=== PATIENT | male | born 1970 | race Caucasian/White ===

== ENCOUNTER 2017-01-05 22:49 | Emergency (ER) | payer SELFPAY ==
[~2017-01-05] VITALS: Ht 182.9 cm; Wt 85.5 kg
[~2017-01-05 22:49] MED LIST: DEXL30CA2 PO; HYDR1TAB14 PO; LORA-445 PO; OMEP-110 PO; OXYC-229 PO; OXYC-302 PO; OXYC15TA75; SUCR100P PO; TRAM50TA2 PO; toradol
[2017-01-06] MEDS ORDERED: DIPH,PERTUSS(ACELL),TET VAC/PF 0.5 ML IM-VACC ONE
[2017-01-06 02:42] VITALS: BP 106/79
== END 2017-01-06 03:13 | disposition home or self-care (01) ==
LOC: ED 01-06 03:08
DX: S06.9X1A Unspecified intracranial injury with loss of consciousness of 30 minutes or less, initial encounter (principal); S00.212A Abrasion of left eyelid and periocular area, initial encounter; Y09 Assault by unspecified means; Y93.9 Activity, unspecified; Y92.89 Other specified places as the place of occurrence of the external cause; Y99.9 Unspecified external cause status; K21.9 Gastro-esophageal reflux disease without esophagitis; F41.1 Generalized anxiety disorder; F10.20 Alcohol dependence, uncomplicated
CPT/HCPCS: 70450; 70486; 72125; 99284

== ENCOUNTER 2017-01-06 12:48 | Emergency (ER) | payer SELFPAY ==
[~2017-01-06] VITALS: Ht 182.9 cm; Wt 85.0 kg
[2017-01-06 13:00] VITALS: BP 117/84
== END 2017-01-06 13:46 | disposition left against medical advice (07) ==
LOC: ED 13:20
DX: R51 Headache (principal); Z53.21 Procedure and treatment not carried out due to patient leaving prior to being seen by health care provider

== ENCOUNTER 2017-01-09 21:37 | Emergency (ER) | payer SELFPAY ==
[~2017-01-09] VITALS: Ht 182.9 cm; Wt 87.1 kg
[2017-01-09 21:38] VITALS: BP 147/93
== END 2017-01-09 23:57 | disposition home or self-care (01) ==
LOC: ED 23:51
DX: R51 Headache (principal); M54.5 Low back pain; G89.29 Other chronic pain; F41.1 Generalized anxiety disorder; K21.9 Gastro-esophageal reflux disease without esophagitis; V89.2XXA Person injured in unspecified motor-vehicle accident, traffic, initial encounter; Y93.89 Activity, other specified; Y99.8 Other external cause status; Y92.488 Other paved roadways as the place of occurrence of the external cause
CPT/HCPCS: 70450; 72110

== ENCOUNTER 2017-04-03 05:41 | Emergency (ER) | payer MEDICAID, OTHER ==
[~2017-04-03] VITALS: Ht 182.9 cm; Wt 87.5 kg
[2017-04-03] MEDS ORDERED: OXYC-302 PO (06:12)
[2017-04-03] MEDS ORDERED: FAMOTIDINE 20 MG/2 ML IVP ONE (07:00)
[2017-04-03] MEDS ORDERED: SODIUM CHLORIDE 0.9% 1,000ML IVBOLUS ONE (07:00)
[2017-04-03] MEDS ORDERED: ONDANSETRON 2MG/ML, 2ML IVPush ONE (07:00)
[2017-04-03] MEDS ORDERED: SODIUM CHLORIDE FLUSH 10ML SYR IVF ONE (07:00)
[2017-04-03] MEDS ORDERED: MAALOX/HYOSCYAMINE/LIDOCAINE 45 ML BOTTLE PO ONE (07:00)
[2017-04-03 07:58] LABS: ASPARTATE AMINO TRANSFERASE 22 U/L (15-37); BLOOD UREA NITROGEN 11 mg/dL (7-18)
[2017-04-03] MEDS ORDERED: MAALOX/HYOSCYAMINE/LIDOCAINE 45 ML BOTTLE ONE (07:58)
[2017-04-03] MEDS ORDERED: FAMOTIDINE 20 MG/2 ML ONE (07:58)
[2017-04-03] MEDS ORDERED: ONDANSETRON 2MG/ML, 2ML ONE (07:58)
[2017-04-03] MEDS ORDERED: MORPHINE SULFATE 4 MG/ML, 1ML ONE (08:09)
[2017-04-03] MEDS ORDERED: morphine SULFATE 10 MG/ML, 1ML IVPush ONE (08:30)
[2017-04-03 08:45] VITALS: BP 120/89
== END 2017-04-03 08:56 | disposition home or self-care (01) ==
LOC: ED 06:15
DX: K29.00 Acute gastritis without bleeding (principal); K21.9 Gastro-esophageal reflux disease without esophagitis
CPT/HCPCS: 36415; 76700; 80053; 81003; 83690; 85025; 96374; 96375; 99285; J2405; J7030; S0028

== ENCOUNTER 2017-04-16 14:16 | Emergency (ER) | payer MEDICAID ==
[~2017-04-16] VITALS: Ht 182.9 cm; Wt 87.6 kg
[2017-04-16 14:26] VITALS: BP 110/82
[2017-04-16] MEDS ORDERED: METHOCARBAMOL 750 MG TABLET ONE (15:09)
[2017-04-16] MEDS ORDERED: KETOROLAC 30 MG/1 ML ONE (15:09)
[2017-04-16] MEDS ORDERED: KETOROLAC 30 MG/1 ML IM ONE (15:30)
[2017-04-16] MEDS ORDERED: METHOCARBAMOL 750 MG TABLET PO ONE (15:30)
== END 2017-04-16 15:32 | disposition home or self-care (01) ==
LOC: ED 15:20
DX: S39.012A Strain of muscle, fascia and tendon of lower back, initial encounter (principal); X58.XXXA Exposure to other specified factors, initial encounter; Y93.89 Activity, other specified; Y99.8 Other external cause status; Y92.89 Other specified places as the place of occurrence of the external cause
CPT/HCPCS: 96372; 99283; J1885

== ENCOUNTER 2017-06-10 14:22 | Emergency (ER) | payer MEDICAID, OTHER ==
[~2017-06-10] VITALS: Ht 182.9 cm; Wt 90.0 kg
[2017-06-10 14:58] VITALS: BP 139/91
== END 2017-06-10 15:29 | disposition home or self-care (01) ==
LOC: ED 15:16
DX: M77.01 Medial epicondylitis, right elbow (principal); K21.9 Gastro-esophageal reflux disease without esophagitis
CPT/HCPCS: 99283

== ENCOUNTER 2017-09-19 13:47 | Emergency (ER) | payer BC ==
[~2017-09-19] VITALS: Ht 182.9 cm; Wt 90.4 kg
[~2017-09-19 13:47] MED LIST changes: -OXYC-229 PO; +OXYC-307 PO
[2017-09-19] MEDS ORDERED: SODIUM CHLORIDE FLUSH 10ML SYR IVF ONE (15:30)
[2017-09-19] MEDS ORDERED: HYDROmorphone 1 MG/ML, 1ML IVPush PRN (15:30)
[2017-09-19] MEDS ORDERED: SODIUM CHLORIDE 0.9% 1,000ML IVBOLUS ONE (15:30)
[2017-09-19] MEDS ORDERED: ONDANSETRON 2MG/ML, 2ML IVPush ONE (15:30)
[2017-09-19 15:38] LABS: HEMATOCRIT 42.8 % (39.2-51.8); HEMOGLOBIN 14.5 g/dL (13.7-18.0); WHITE BLOOD COUNT 4.8 x10^3/uL (3.4-10)
[2017-09-19 15:51] LABS: BLOOD UREA NITROGEN 11 mg/dL (7-18)
[2017-09-19 15:56] LABS: IS PT STATUS REG ER OR PRE ER? YES
[2017-09-19] MEDS ORDERED: HYDROmorphone 1 MG/ML, 1ML ONE (15:59)
[2017-09-19] MEDS ORDERED: ONDANSETRON 2MG/ML, 2ML ONE (15:59)
[2017-09-19 16:59] VITALS: BP 125/87
== END 2017-09-19 17:08 | disposition home or self-care (01) ==
LOC: ED 17:02
DX: R51 Headache (principal); F41.9 Anxiety disorder, unspecified; K21.9 Gastro-esophageal reflux disease without esophagitis; F32.9 Major depressive disorder, single episode, unspecified
CPT/HCPCS: 36415; 70450; 80048; 82040; 84484; 85025; 96374; 96375; 99285; J1170; J2405; J7030

== ENCOUNTER 2017-12-07 14:12 | Emergency (ER) | payer SELFPAY ==
[~2017-12-07] VITALS: Ht 182.9 cm; Wt 89.0 kg
[2017-12-07] MEDS ORDERED: ASPIRIN 81 MG TABLET CHEW ONE (14:26)
[2017-12-07] MEDS ORDERED: SODIUM CHLORIDE FLUSH 10ML SYR IVF ONE (14:30)
[2017-12-07] MEDS ORDERED: ASPIRIN 81 MG TABLET CHEW PO ONE (14:30)
[2017-12-07 15:07] LABS: ALANINE AMINOTRANSFERASE 31 U/L (12-78); ALBUMIN 3.7 g/dL (3.4-5.0); ANION GAP 6 mmol/L (5-15); CALCIUM 8.1 mg/dL (8.5-10.1); CHLORIDE 108 mmol/L (98-107); CREATININE 0.82 mg/dL (0.7-1.3)
[2017-12-07 15:11] LABS: ALKALINE PHOSPHATASE 174 U/L (45-117); BILIRUBIN,TOTAL 0.5 mg/dL (0.2-1.0); TOTAL PROTEIN 7.1 g/dL (6.4-8.2); TROPONIN I < 0.015 ng/mL (0.000-0.045)
[2017-12-07 15:45] LABS: BASOPHILS # (AUTO) 0.02 x10^3/uL (0-0.1); BASOPHILS % (AUTO) 0 % (0-1); EOSINOPHILS # (AUTO) 0.19 x10^3/uL (0-0.4); EOSINOPHILS % (AUTO) 3 % (1-7); LYMPHOCYTES # (AUTO) 2.16 x10^3/uL (1-3.4); LYMPHOCYTES % (AUTO) 37 % (22-44); MD NO; MEAN CORPUSCULAR HEMOGLOBIN 31.6 pg (27.5-34.5); MEAN CORPUSCULAR HGB CONC 34.4 g/dL (33.2-36.2); MEAN CORPUSCULAR VOLUME 91.8 fL (81-97); MONOCYTES # (AUTO) 0.39 x10^3/uL (0.2-0.8); MONOCYTES % (AUTO) 7 % (2-9); NEUTROPHILS # (AUTO) 3.06 x10^3/uL (1.8-6.8); NEUTROPHILS % (AUTO) 53 % (42-75); PLATELET COUNT 196 x10^3/uL (130-400); RED BLOOD COUNT 4.47 x10^6/uL (4.38-5.82); RED CELL DISTRIBUTION WIDTH 13.3 % (9.4-14.8)
[2017-12-07] MEDS ORDERED: MAALOX/HYOSCYAMINE/LIDOCAINE 45 ML BTL PO ONE (19:30)
[2017-12-07] MEDS ORDERED: MAALOX/HYOSCYAMINE/LIDOCAINE 45 ML BTL ONE (19:31)
[2017-12-07 20:54] VITALS: BP 123/89
== END 2017-12-07 20:56 | disposition home or self-care (01) ==
LOC: ED 20:45
DX: R07.2 Precordial pain (principal); F17.200 Nicotine dependence, unspecified, uncomplicated; F32.9 Major depressive disorder, single episode, unspecified; F41.9 Anxiety disorder, unspecified; K21.9 Gastro-esophageal reflux disease without esophagitis; G89.29 Other chronic pain; R51 Headache
CPT/HCPCS: 36415; 71046; 80053; 83690; 84484; 85025; 93005; 99285

== ENCOUNTER 2018-03-02 12:25 | Emergency (ER) | payer SELFPAY ==
[~2018-03-02] VITALS: Ht 182.9 cm; Wt 84.2 kg
[2018-03-02 12:26] VITALS: BP 129/89
[2018-03-02] MEDS ORDERED: OXYcodone/APAP 5/325MG TABLET ONE (12:57)
[2018-03-02] MEDS ORDERED: OXYcodone/APAP 5/325MG TABLET PO ONE (13:00)
[2018-03-02] MEDS ORDERED: OXYC-307 PO (13:04)
== END 2018-03-02 14:28 | disposition home or self-care (01) ==
LOC: ED 13:22
DX: S00.12XA Contusion of left eyelid and periocular area, initial encounter (principal); X58.XXXA Exposure to other specified factors, initial encounter; Y93.89 Activity, other specified; Y99.8 Other external cause status; Y92.89 Other specified places as the place of occurrence of the external cause
CPT/HCPCS: 70486; 72125; 99284

== ENCOUNTER 2018-05-08 19:43 | Emergency (ER) | payer MEDICAID ==
[~2018-05-08] VITALS: Ht 182.9 cm; Wt 79.0 kg
[2018-05-08] MEDS ORDERED: FAMOTIDINE 20 MG/2 ML IVP ONE (20:30)
[2018-05-08] MEDS ORDERED: ONDANSETRON 2MG/ML, 2ML IVPush ONE (20:30)
[2018-05-08] MEDS ORDERED: MAALOX/HYOSCYAMINE/LIDOCAINE 45 ML BTL PO ONE (20:30)
[2018-05-08 20:37] LABS: BASOPHILS # (AUTO) 0.03 x10^3/uL (0-0.1); BASOPHILS % (AUTO) 1 % (0-1); EOSINOPHILS # (AUTO) 0.03 x10^3/uL (0-0.4); EOSINOPHILS % (AUTO) 1 % (1-7); LYMPHOCYTES # (AUTO) 2.19 x10^3/uL (1-3.4); LYMPHOCYTES % (AUTO) 34 % (22-44); MD NO; MEAN CORPUSCULAR HEMOGLOBIN 33.2 pg (27.5-34.5); MEAN CORPUSCULAR HGB CONC 34.1 g/dL (33.2-36.2); MEAN CORPUSCULAR VOLUME 97.2 fL (81-97); MEAN PLATELET VOLUME 9.3 fL (7.4-10.4); MONOCYTES # (AUTO) 0.42 x10^3/uL (0.2-0.8); MONOCYTES % (AUTO) 7 % (2-9); NEUTROPHILS # (AUTO) 3.79 x10^3/uL (1.8-6.8); NEUTROPHILS % (AUTO) 59 % (42-75); PLATELET COUNT 225 x10^3/uL (130-400); RED BLOOD COUNT 5.24 x10^6/uL (4.38-5.82); RED CELL DISTRIBUTION WIDTH 14.4 % (9.4-14.8)
[2018-05-08 20:39] LABS: ALANINE AMINOTRANSFERASE 53 U/L (12-78); ALBUMIN 4.6 g/dL (3.4-5.0); ANION GAP 7 mmol/L (5-15); CALCIUM 8.8 mg/dL (8.5-10.1); CHLORIDE 108 mmol/L (98-107); CREATININE 1.25 mg/dL (0.7-1.3)
[2018-05-08 20:41] LABS: ALKALINE PHOSPHATASE 155 U/L (45-117); BILIRUBIN,TOTAL 0.6 mg/dL (0.2-1.0); TOTAL PROTEIN 8.6 g/dL (6.4-8.2)
[2018-05-08] MEDS ORDERED: ONDANSETRON 2MG/ML, 2ML ONE (21:11)
[2018-05-08] MEDS ORDERED: FAMOTIDINE 20 MG/2 ML ONE (21:12)
[2018-05-08] MEDS ORDERED: MAALOX/HYOSCYAMINE/LIDOCAINE 45 ML BTL ONE (21:12)
[2018-05-08] MEDS ORDERED: SODIUM CHLORIDE 0.9% 1,000ML IVBOLUS ONE (21:30)
[2018-05-08] MEDS ORDERED: MORPHINE SULFATE 4 MG/ML, 1ML ONE ×2 (21:32→22:41)
[2018-05-08] MEDS: MORPHINE SULFATE 4 MG/ML, 1ML IVPush PRN ×2 (21:37→22:43)
[2018-05-08] MEDS ORDERED: HYDROmorphone 2 MG/ML, 1ML ONE (23:52)
[2018-05-08 23:56] VITALS: BP 128/75
== END 2018-05-09 00:21 | disposition home or self-care (01) ==
LOC: ED 23:39
DX: K86.0 Alcohol-induced chronic pancreatitis (principal); K21.9 Gastro-esophageal reflux disease without esophagitis
CPT/HCPCS: 36415; 76700; 80053; 83690; 85025; 96361; 96374; 96375; 96376; 99285; J2405; J7030; S0028

== ENCOUNTER 2018-06-06 19:39 | Emergency (ER) | payer MEDICAID ==
[~2018-06-06] VITALS: Ht 182.9 cm; Wt 81.0 kg
[2018-06-06] MEDS ORDERED: SODIUM CHLORIDE FLUSH 10ML SYR IVF ONE (20:30)
[2018-06-06 20:55] LABS: BASOPHILS # (AUTO) 0.03 x10^3/uL (0-0.1); BASOPHILS % (AUTO) 1 % (0-1); EOSINOPHILS # (AUTO) 0.12 x10^3/uL (0-0.4); EOSINOPHILS % (AUTO) 2 % (1-7); LYMPHOCYTES # (AUTO) 1.83 x10^3/uL (1-3.4); LYMPHOCYTES % (AUTO) 33 % (22-44); MD NO; MEAN CORPUSCULAR HEMOGLOBIN 34.2 pg (27.5-34.5); MEAN CORPUSCULAR HGB CONC 34.3 g/dL (33.2-36.2); MEAN CORPUSCULAR VOLUME 99.7 fL (81-97); MEAN PLATELET VOLUME 8.6 fL (7.4-10.4); MONOCYTES # (AUTO) 0.29 x10^3/uL (0.2-0.8); MONOCYTES % (AUTO) 5 % (2-9); NEUTROPHILS # (AUTO) 3.32 x10^3/uL (1.8-6.8); NEUTROPHILS % (AUTO) 60 % (42-75); PLATELET COUNT 227 x10^3/uL (130-400); RED BLOOD COUNT 4.32 x10^6/uL (4.38-5.82); RED CELL DISTRIBUTION WIDTH 14.3 % (9.4-14.8)
[2018-06-06 22:03] VITALS: BP 117/78
[2018-06-06] MEDS ORDERED: OMNIPAQUE 350 MG/ML, 100ML BOTTLE ONE (22:11)
== END 2018-06-06 22:05 | disposition home or self-care (01) ==
LOC: ED 22:00
DX: S80.11XA Contusion of right lower leg, initial encounter (principal); R10.84 Generalized abdominal pain; K21.9 Gastro-esophageal reflux disease without esophagitis; F32.9 Major depressive disorder, single episode, unspecified; F41.1 Generalized anxiety disorder; V29.49XA Motorcycle driver injured in collision with other motor vehicles in traffic accident, initial encounter; Y93.89 Activity, other specified; Y99.8 Other external cause status; Y92.89 Other specified places as the place of occurrence of the external cause
CPT/HCPCS: 36415; 70450; 72125; 73590; 74177; 85025; 99285; Q9967

== ENCOUNTER 2018-07-04 00:26 | Inpatient (IN) | payer MEDICAID, OTHER ==
[~2018-07-04] VITALS: Ht 182.9 cm; Wt 84.1 kg
[2018-07-04] MEDS ORDERED: MORPHINE SULFATE 4 MG/ML, 1ML IVPush PRN (01:00)
[2018-07-04] MEDS ORDERED: FAMOTIDINE 20 MG/2 ML IVP ONE (01:00)
[2018-07-04] MEDS ORDERED: SODIUM CHLORIDE FLUSH 10ML SYR IVF ONE (01:00)
[2018-07-04] MEDS ORDERED: SODIUM CHLORIDE 0.9% 1,000ML IVBOLUS ONE (01:00)
[2018-07-04] MEDS ORDERED: MORPHINE SULFATE 4 MG/ML, 1ML ONE (01:05)
[2018-07-04] MEDS ORDERED: FAMOTIDINE 20 MG/2 ML ONE (01:05)
[2018-07-04 01:09] LABS: BASOPHILS # (AUTO) 0.01 x10^3/uL (0-0.1); BASOPHILS % (AUTO) 0 % (0-1); EOSINOPHILS # (AUTO) 0.03 x10^3/uL (0-0.4); EOSINOPHILS % (AUTO) 0 % (1-7); LYMPHOCYTES # (AUTO) 2.09 x10^3/uL (1-3.4); LYMPHOCYTES % (AUTO) 30 % (22-44); MD NO; MEAN CORPUSCULAR HEMOGLOBIN 34.6 pg (27.5-34.5); MEAN CORPUSCULAR HGB CONC 34.8 g/dL (33.2-36.2); MEAN CORPUSCULAR VOLUME 99.3 fL (81-97); MEAN PLATELET VOLUME 8.9 fL (7.4-10.4); MONOCYTES # (AUTO) 0.22 x10^3/uL (0.2-0.8); MONOCYTES % (AUTO) 3 % (2-9); NEUTROPHILS # (AUTO) 4.59 x10^3/uL (1.8-6.8); NEUTROPHILS % (AUTO) 66 % (42-75); PLATELET COUNT 185 x10^3/uL (130-400); RED BLOOD COUNT 4.53 x10^6/uL (4.38-5.82); RED CELL DISTRIBUTION WIDTH 14.1 % (9.4-14.8)
[2018-07-04 01:12] LABS: INTERNATIONAL NORMALIZED RATIO 1.05 (0.93-1.1); PROTHROMBIN TIME 10.8 Seconds (9.6-11.5)
[2018-07-04 01:15] LABS: ALANINE AMINOTRANSFERASE 37 U/L (12-78); ALBUMIN 3.9 g/dL (3.4-5.0); ANION GAP 11 mmol/L (5-15); CALCIUM 7.7 mg/dL (8.5-10.1); CHLORIDE 108 mmol/L (98-107); CREATININE 0.87 mg/dL (0.7-1.3)
[2018-07-04 01:17] LABS: ALKALINE PHOSPHATASE 135 U/L (45-117); BILIRUBIN,TOTAL 0.5 mg/dL (0.2-1.0); TOTAL PROTEIN 7.5 g/dL (6.4-8.2)
[2018-07-04] MEDS ORDERED: MAGNESIUM SULFATE 1 GM, THIAMINE 100 MG, FOLIC ACID 1 MG, MVI ADULT 10 ML in SODIUM CHL... IV ONE (02:30)
[2018-07-04 02:57] VITALS: BP 127/87
[2018-07-04] MEDS ORDERED: LORazepam 1MG TABLET PO PRN ×3 (03:00)
[2018-07-04] MEDS ORDERED: ONDANSETRON 2MG/ML, 2ML IVPush PRN (03:00)
[2018-07-04] MEDS ORDERED: hydrALAzine 20 MG/ML, 1ML IVPush PRN (03:00)
[2018-07-04] MEDS ORDERED: LORazepam 2 MG/ML, 1ML IV PRN ×5 (03:00)
[2018-07-04] MEDS ORDERED: DOCUSATE 100 MG CAPSULE PO PRN (03:00)
[2018-07-04] MEDS ORDERED: BISACODYL 10 MG SUPP PR PRN (03:00)
[2018-07-04] MEDS ORDERED: LABETALOL 5MG/ML, 20ML IVPush PRN (03:00)
[2018-07-04] MEDS ORDERED: GABAPENTIN 300 MG CAPSULE PO PRN (03:00)
[2018-07-04] MEDS ORDERED: PROMETHAZINE 25 MG/ML, 1ML IM PRN (03:00)
[2018-07-04] MEDS ORDERED: ONDANSETRON ODT 4 MG PO PRN (03:00)
[2018-07-04] MEDS ORDERED: POLYETHYLENE GLYCOL 17 GM PACKET PO PRN (03:00)
[2018-07-04] MEDS ORDERED: BACLOFEN 10 MG TABLET PO PRN (03:00)
[2018-07-04] MEDS ORDERED: LORazepam 0.5MG TABLET PO PRN (03:00)
[2018-07-04 03:32] LABS: HEMOGLOBIN A1C 5.3 % (4.2-6.3)
[2018-07-04 03:41] LABS: FREE T4 (FREE THYROXINE) 0.87 ng/dL (0.76-1.46); THYROID STIMULATING HORMONE 1.27 mIU/L (0.358-3.740)
[2018-07-04 05:01] LABS: CULTURE INDICATED? NO; MICROSCOPIC NOT IND
[2018-07-04] MEDS: PANTOPRAZOLE 40 MG IV IVPush SCH ×2 (05:24→17:48)
[2018-07-04] MEDS: LORazepam 1MG TABLET PO PRN ×3 (05:32→14:24)
[2018-07-04 07:50] VITALS: BP 126/91
[2018-07-04 12:32] VITALS: BP 118/81
[2018-07-04] MEDS ORDERED: ACETAMINOPHEN 325 MG TABLET PO PRN (16:30)
[2018-07-04] MEDS: LORazepam 2 MG/ML, 1ML IVPush PRN ×2 (17:06→20:13)
[2018-07-04] MEDS: SODIUM CHLORIDE 0.9% 1,000 ML IV SCH (17:06)
[2018-07-04 18:55] VITALS: BP 123/81
[2018-07-04] MEDS: CHOLECALCIFEROL 400 UNITS TABLET PO SCH (20:13)
[2018-07-04] MEDS: THIAMINE 100MG TABLET PO SCH (20:13)
[2018-07-04] MEDS: GABAPENTIN 100 MG CAPSULE PO SCH (20:13)
[2018-07-05] MEDS: LORazepam 2 MG/ML, 1ML IVPush PRN ×4 (00:45→20:17)
[2018-07-05 02:04] VITALS: BP 106/71
[2018-07-05] MEDS: SODIUM CHLORIDE 0.9% 1,000 ML IV SCH ×2 (02:30→14:45)
[2018-07-05] MEDS: POTASSIUM CHLORIDE 20 MEQ, MAGNESIUM SULFATE 2 GM, THIAMINE 100 MG, MVI ADULT 10 ML, FO... IV SCH (02:39)
[2018-07-05 05:58] LABS: BASOPHILS # (AUTO) 0.03 x10^3/uL (0-0.1); BASOPHILS % (AUTO) 1 % (0-1); EOSINOPHILS # (AUTO) 0.12 x10^3/uL (0-0.4); EOSINOPHILS % (AUTO) 2 % (1-7); LYMPHOCYTES % (AUTO) 18 % (22-44); MD NO; MEAN CORPUSCULAR HGB CONC 34.3 g/dL (33.2-36.2); MEAN PLATELET VOLUME 9.3 fL (7.4-10.4); MONOCYTES # (AUTO) 0.36 x10^3/uL (0.2-0.8); MONOCYTES % (AUTO) 6 % (2-9); NEUTROPHILS # (AUTO) 4.49 x10^3/uL (1.8-6.8); NEUTROPHILS % (AUTO) 74 % (42-75); PLATELET COUNT 127 x10^3/uL (130-400); RED BLOOD COUNT 3.83 x10^6/uL (4.38-5.82); RED CELL DISTRIBUTION WIDTH 13.6 % (9.4-14.8)
[2018-07-05 06:02] LABS: ALBUMIN 3.1 g/dL (3.4-5.0); ANION GAP 7 mmol/L (5-15); CALCIUM 8.1 mg/dL (8.5-10.1); CHLORIDE 103 mmol/L (98-107)
[2018-07-05 06:08] LABS: ALANINE AMINOTRANSFERASE 41 U/L (12-78); ALKALINE PHOSPHATASE 129 U/L (45-117); BILIRUBIN,TOTAL 1.7 mg/dL (0.2-1.0); CHOL/HDL RATIO 1.4; CHOLESTEROL, TOTAL 142 mg/dL (140-239); HDL CHOL % 69 % (26-37); HDL CHOLESTEROL (DIRECT) 98 mg/dL (40-60); LDL CHOLESTEROL,CALCULATED 35 mg/dL (54-169); LDL/HDL RATIO 0.4 (0.5-3.0); TRIGLYCERIDES 46 mg/dL (50-200); VLDL CHOLESTEROL 9 mg/dL (0-25)
[2018-07-05] MEDS: PANTOPRAZOLE 40 MG IV IVPush SCH ×2 (06:35→17:48)
[2018-07-05 07:27] VITALS: BP 135/86
[2018-07-05] MEDS: GABAPENTIN 100 MG CAPSULE PO SCH ×3 (08:33→20:18)
[2018-07-05] MEDS: THIAMINE 100MG TABLET PO SCH ×2 (08:34→20:17)
[2018-07-05] MEDS: CHOLECALCIFEROL 400 UNITS TABLET PO SCH ×2 (08:34→20:17)
[2018-07-05 14:07] VITALS: BP 117/79
[2018-07-05 20:37] VITALS: BP 121/81
[2018-07-06] MEDS: SODIUM CHLORIDE 0.9% 1,000 ML IV SCH ×2 (01:22→10:00)
[2018-07-06] MEDS: LORazepam 2 MG/ML, 1ML IVPush PRN ×3 (01:23→12:25)
[2018-07-06 01:25] VITALS: BP 137/92
[2018-07-06] MEDS: PANTOPRAZOLE 40 MG IV IVPush SCH (06:19)
[2018-07-06] MEDS: POTASSIUM CHLORIDE 20 MEQ, MAGNESIUM SULFATE 2 GM, THIAMINE 100 MG, MVI ADULT 10 ML, FO... IV SCH (06:24)
[2018-07-06 07:45] VITALS: BP 119/84
[2018-07-06] MEDS: CHOLECALCIFEROL 400 UNITS TABLET PO SCH (08:24)
[2018-07-06] MEDS: GABAPENTIN 100 MG CAPSULE PO SCH ×2 (08:24→16:00)
[2018-07-06] MEDS: THIAMINE 100MG TABLET PO SCH (08:24)
[2018-07-06 11:01] LABS: ALANINE AMINOTRANSFERASE 63 U/L (12-78); ALBUMIN 3.1 g/dL (3.4-5.0); ANION GAP 8 mmol/L (5-15); CHLORIDE 102 mmol/L (98-107); CREATININE 0.85 mg/dL (0.7-1.3); MEAN CORPUSCULAR HEMOGLOBIN 34.7 pg (27.5-34.5); MEAN CORPUSCULAR HGB CONC 34.5 g/dL (33.2-36.2); MEAN CORPUSCULAR VOLUME 100.6 fL (81-97); MEAN PLATELET VOLUME 9.5 fL (7.4-10.4); PLATELET COUNT 109 x10^3/uL (130-400); RED BLOOD COUNT 3.69 x10^6/uL (4.38-5.82); RED CELL DISTRIBUTION WIDTH 13.5 % (9.4-14.8)
[2018-07-06 11:04] LABS: ALKALINE PHOSPHATASE 141 U/L (45-117); BILIRUBIN,TOTAL 1.3 mg/dL (0.2-1.0); TOTAL PROTEIN 6.1 g/dL (6.4-8.2)
[2018-07-06 11:29] LABS: BASOPHILS # (AUTO) 0.01 x10^3/uL (0-0.1); BASOPHILS % (AUTO) 0 % (0-1); EOSINOPHILS # (AUTO) 0.22 x10^3/uL (0-0.4); EOSINOPHILS % (AUTO) 6 % (1-7); LYMPHOCYTES # (AUTO) 0.78 x10^3/uL (1-3.4); LYMPHOCYTES % (AUTO) 22 % (22-44); MD SCAN; MONOCYTES # (AUTO) 0.22 x10^3/uL (0.2-0.8); MONOCYTES % (AUTO) 6 % (2-9); NEUTROPHILS % (AUTO) 65 % (42-75)
[2018-07-06 13:50] VITALS: BP 126/87
[2018-07-06] MEDS ORDERED: PANT40TA3 PO (14:04)
== END 2018-07-06 17:20 | disposition home or self-care (01) | DRG 392 ==
LOC: ED 01:20 → EDIP 02:11 → 4NOR 03:00
PROVIDERS: ADMIT Internal Medicine; ATTEND Internal Medicine
DX: K29.00 Acute gastritis without bleeding (principal); K86.1 Other chronic pancreatitis; K29.20 Alcoholic gastritis without bleeding; D75.89 Other specified diseases of blood and blood-forming organs; E83.51 Hypocalcemia; K21.9 Gastro-esophageal reflux disease without esophagitis; Z87.891 Personal history of nicotine dependence; F10.129 Alcohol abuse with intoxication, unspecified; G89.29 Other chronic pain
CPT/HCPCS: 36415; 99285; J7042; S0028; 80053; 80061; 80307; 81003; 82306; 82607; 83036; 83690; 83735; 84100; 84439; 84443; 85025; 85610; 96374; 96375; G0378; J3411; J3475; J3480; Q0162; C9113; J2060; J7030

== ENCOUNTER 2018-07-13 18:24 | Inpatient (IN) | payer MEDICAID, OTHER ==
[~2018-07-13] VITALS: Ht 182.9 cm; Wt 79.4 kg
[~2018-07-13 18:24] MED LIST changes: +PANT40TA3 PO
[2018-07-13] MEDS ORDERED: SODIUM CHLORIDE 0.9% 1,000ML IVBOLUS ONE (19:00)
[2018-07-13] MEDS ORDERED: PLEASE ENTER HEIGHT AND WEIGHT MC SCH (19:00)
[2018-07-13] MEDS ORDERED: FAMOTIDINE 20 MG/2 ML IVP ONE (19:00)
[2018-07-13] MEDS ORDERED: SODIUM CHLORIDE FLUSH 10ML SYR IVF ONE (19:00)
[2018-07-13] MEDS ORDERED: ONDANSETRON ODT 4 MG PO ONE ×2 (19:00→19:30)
[2018-07-13] MEDS ORDERED: ONDANSETRON ODT 4 MG ONE (19:08)
[2018-07-13] MEDS ORDERED: FAMOTIDINE 20 MG/2 ML ONE (19:08)
[2018-07-13] MEDS ORDERED: MORPHINE SULFATE 4 MG/ML, 1ML ONE ×2 (19:24→19:53)
[2018-07-13 19:30] LABS: BASOPHILS # (AUTO) 0.02 x10^3/uL (0-0.1); BASOPHILS % (AUTO) 1 % (0-1); EOSINOPHILS # (AUTO) 0.04 x10^3/uL (0-0.4); EOSINOPHILS % (AUTO) 1 % (1-7); LYMPHOCYTES # (AUTO) 2.13 x10^3/uL (1-3.4); LYMPHOCYTES % (AUTO) 46 % (22-44); MD NO; MEAN CORPUSCULAR HEMOGLOBIN 34.6 pg (27.5-34.5); MEAN CORPUSCULAR HGB CONC 34.8 g/dL (33.2-36.2); MEAN CORPUSCULAR VOLUME 99.5 fL (81-97); MEAN PLATELET VOLUME 8.6 fL (7.4-10.4); MONOCYTES # (AUTO) 0.42 x10^3/uL (0.2-0.8); MONOCYTES % (AUTO) 9 % (2-9); NEUTROPHILS # (AUTO) 2.06 x10^3/uL (1.8-6.8); NEUTROPHILS % (AUTO) 44 % (42-75); PLATELET COUNT 222 x10^3/uL (130-400); RED BLOOD COUNT 4.43 x10^6/uL (4.38-5.82); RED CELL DISTRIBUTION WIDTH 14.1 % (9.4-14.8)
[2018-07-13] MEDS: MORPHINE SULFATE 4 MG/ML, 1ML IVPush PRN ×2 (19:30→19:57)
[2018-07-13 19:47] LABS: ALANINE AMINOTRANSFERASE 31 U/L (12-78); ALBUMIN 3.2 g/dL (3.4-5.0); ANION GAP 9 mmol/L (5-15); CALCIUM 7.4 mg/dL (8.5-10.1); CHLORIDE 114 mmol/L (98-107); CREATININE 0.78 mg/dL (0.7-1.3)
[2018-07-13 19:49] LABS: ALKALINE PHOSPHATASE 110 U/L (45-117); BILIRUBIN,TOTAL 0.3 mg/dL (0.2-1.0); TOTAL PROTEIN 6.4 g/dL (6.4-8.2)
[2018-07-13 20:35] LABS: CULTURE INDICATED? NO; MICROSCOPIC NOT IND
[2018-07-13] MEDS ORDERED: SODIUM CHLORIDE 0.9% 1,000 ML IV ONE (20:56)
[2018-07-13] MEDS ORDERED: SODIUM CHLORIDE FLUSH 10ML SYR IVF PRN (21:00)
[2018-07-13] MEDS ORDERED: LACTULOSE 20 GM/30 ML UDC PO ONE (21:00)
[2018-07-13] MEDS ORDERED: BISACODYL 10 MG SUPP PR PRN (21:30)
[2018-07-13] MEDS ORDERED: ONDANSETRON ODT 4 MG PO PRN (21:30)
[2018-07-13] MEDS ORDERED: POLYETHYLENE GLYCOL 17 GM PACKET PO PRN (21:30)
[2018-07-13] MEDS: CHLORDIAZEPOXIDE 25 MG CAPSULE PO PRN (22:42)
[2018-07-13] MEDS: SUCRALFATE 1 GM/10 ML UDC PO SCH (22:42)
[2018-07-13] MEDS: POTASSIUM CHLORIDE 20 MEQ, MAGNESIUM SULFATE 2 GM, THIAMINE 200 MG, MVI ADULT 10 ML, FO... IV SCH (23:01)
[2018-07-14] MEDS: LORazepam 2 MG/ML, 1ML IVPush PRN ×5 (00:06→23:58)
[2018-07-14 02:55] VITALS: BP 120/78
[2018-07-14 03:28] VITALS: BP 115/79
[2018-07-14 04:36] LABS: ALANINE AMINOTRANSFERASE 87 U/L (12-78); ALBUMIN 3.1 g/dL (3.4-5.0); ANION GAP 9 mmol/L (5-15); CALCIUM 7.3 mg/dL (8.5-10.1); CHLORIDE 113 mmol/L (98-107); CREATININE 0.82 mg/dL (0.7-1.3)
[2018-07-14 04:38] LABS: ALKALINE PHOSPHATASE 122 U/L (45-117); BILIRUBIN,TOTAL 0.3 mg/dL (0.2-1.0); TOTAL PROTEIN 6.1 g/dL (6.4-8.2)
[2018-07-14 04:39] LABS: BASOPHILS # (AUTO) 0.01 x10^3/uL (0-0.1); BASOPHILS % (AUTO) 0 % (0-1); EOSINOPHILS # (AUTO) 0.04 x10^3/uL (0-0.4); EOSINOPHILS % (AUTO) 1 % (1-7); LYMPHOCYTES # (AUTO) 1.39 x10^3/uL (1-3.4); LYMPHOCYTES % (AUTO) 24 % (22-44); MD NO; MEAN CORPUSCULAR HEMOGLOBIN 34.6 pg (27.5-34.5); MEAN CORPUSCULAR VOLUME 101.7 fL (81-97); MEAN PLATELET VOLUME 8.6 fL (7.4-10.4); MONOCYTES # (AUTO) 0.47 x10^3/uL (0.2-0.8); MONOCYTES % (AUTO) 8 % (2-9); NEUTROPHILS # (AUTO) 3.99 x10^3/uL (1.8-6.8); NEUTROPHILS % (AUTO) 68 % (42-75); PLATELET COUNT 177 x10^3/uL (130-400); RED CELL DISTRIBUTION WIDTH 13.9 % (9.4-14.8)
[2018-07-14] MEDS: LACTULOSE 20 GM/30 ML UDC PO SCH ×4 (05:10→19:43)
[2018-07-14 08:58] VITALS: BP 105/75
[2018-07-14] MEDS: SENNA/DOCUSATE TABLET PO SCH (09:08)
[2018-07-14] MEDS: CHLORDIAZEPOXIDE 25 MG CAPSULE PO PRN ×2 (09:08→22:25)
[2018-07-14] MEDS: SUCRALFATE 1 GM/10 ML UDC PO SCH ×4 (09:08→19:43)
[2018-07-14] MEDS: FAMOTIDINE 20 MG TABLET PO SCH ×2 (09:08→19:44)
[2018-07-14 14:58] VITALS: BP 114/77
[2018-07-14] MEDS ORDERED: CALCIUM GLUCONATE 9.2 MEQ in SODIUM CHLORIDE 0.9% 100 ML IV ONE (15:00)
[2018-07-14] MEDS: POTASSIUM CHLORIDE 10 MEQ in D5%-0.45% NACL 1,000 ML IV SCH (16:34)
[2018-07-14 21:50] VITALS: BP 105/71
[2018-07-14] MEDS: POTASSIUM CHLORIDE 20 MEQ, MAGNESIUM SULFATE 2 GM, THIAMINE 200 MG, MVI ADULT 10 ML, FO... IV SCH (22:26)
[2018-07-14 22:52] VITALS: BP 105/71
[2018-07-15] MEDS: POTASSIUM CHLORIDE 10 MEQ in D5%-0.45% NACL 1,000 ML IV SCH ×2 (03:40→08:29)
[2018-07-15 03:45] VITALS: BP 110/73
[2018-07-15 05:04] LABS: CHLORIDE 108 mmol/L (98-107)
[2018-07-15 05:18] LABS: ALANINE AMINOTRANSFERASE 78 U/L (12-78); ALKALINE PHOSPHATASE 107 U/L (45-117); ANION GAP 8 mmol/L (5-15); CALCIUM 7.9 mg/dL (8.5-10.1); CREATININE 0.92 mg/dL (0.7-1.3); TOTAL PROTEIN 5.9 g/dL (6.4-8.2)
[2018-07-15] MEDS: LORazepam 2 MG/ML, 1ML IVPush PRN (05:48)
[2018-07-15 07:20] VITALS: BP 121/84
[2018-07-15] MEDS: SUCRALFATE 1 GM/10 ML UDC PO SCH (07:47)
[2018-07-15] MEDS: LACTULOSE 20 GM/30 ML UDC PO SCH (08:29)
[2018-07-15] MEDS: SENNA/DOCUSATE TABLET PO SCH (08:29)
[2018-07-15] MEDS: FAMOTIDINE 20 MG TABLET PO SCH (08:29)
[2018-07-15] MEDS ORDERED: FAMO20TA7 PO (10:27)
[2018-07-15] MEDS ORDERED: OXYcodone/APAP 10/325MG TABLET PO ONE (10:30)
== END 2018-07-15 11:18 | disposition home or self-care (01) | DRG 433 ==
LOC: ED 20:52 → EDIP 21:16 → 3NE 22:06
PROVIDERS: ADMIT Internal Medicine; ATTEND Internal Medicine
DX: K70.40 Alcoholic hepatic failure without coma (principal); E72.20 Disorder of urea cycle metabolism, unspecified; E87.0 Hyperosmolality and hypernatremia; E44.1 Mild protein-calorie malnutrition; K86.1 Other chronic pancreatitis; F32.9 Major depressive disorder, single episode, unspecified; K21.9 Gastro-esophageal reflux disease without esophagitis; K29.20 Alcoholic gastritis without bleeding; D75.89 Other specified diseases of blood and blood-forming organs; E87.6 Hypokalemia; F10.229 Alcohol dependence with intoxication, unspecified; F41.1 Generalized anxiety disorder; Z68.23 Body mass index [BMI] 23.0-23.9, adult
CPT/HCPCS: 36415; J7042; S0028; 80053; 80307; 81003; 82140; 83690; 83735; 84100; 85025; 93005; G0378; J0610; J3411; J3475; J3480; Q0162; J2060; J7030

== ENCOUNTER 2018-07-15 16:35 | Emergency (ER) | payer MEDICAID ==
[~2018-07-15] VITALS: Ht 182.9 cm; Wt 82.1 kg
[~2018-07-15 16:35] MED LIST changes: +FAMO20TA7 PO
[2018-07-15 16:44] VITALS: BP 126/91
[2018-07-15] MEDS ORDERED: MAALOX/HYOSCYAMINE/LIDOCAINE 45 ML BTL ONE (17:08)
[2018-07-15] MEDS ORDERED: PANTOPRAZOLE 20MG TABLET ONE (17:08)
[2018-07-15 17:22] LABS: BASOPHILS # (AUTO) 0.04 x10^3/uL (0-0.1); BASOPHILS % (AUTO) 1 % (0-1); EOSINOPHILS # (AUTO) 0.02 x10^3/uL (0-0.4); EOSINOPHILS % (AUTO) 1 % (1-7); LYMPHOCYTES # (AUTO) 1.08 x10^3/uL (1-3.4); LYMPHOCYTES % (AUTO) 24 % (22-44); MD NO; MEAN CORPUSCULAR HEMOGLOBIN 34.2 pg (27.5-34.5); MEAN CORPUSCULAR HGB CONC 34.2 g/dL (33.2-36.2); MEAN CORPUSCULAR VOLUME 99.9 fL (81-97); MEAN PLATELET VOLUME 8.6 fL (7.4-10.4); MONOCYTES # (AUTO) 0.49 x10^3/uL (0.2-0.8); MONOCYTES % (AUTO) 11 % (2-9); NEUTROPHILS # (AUTO) 2.98 x10^3/uL (1.8-6.8); NEUTROPHILS % (AUTO) 65 % (42-75); PLATELET COUNT 192 x10^3/uL (130-400); RED BLOOD COUNT 3.91 x10^6/uL (4.38-5.82); RED CELL DISTRIBUTION WIDTH 13.3 % (9.4-14.8)
[2018-07-15] MEDS ORDERED: MAALOX/HYOSCYAMINE/LIDOCAINE 45 ML BTL PO ONE (17:30)
[2018-07-15] MEDS ORDERED: PANTOPRAZOLE 20MG TABLET PO ONE (17:30)
[2018-07-15 17:37] LABS: ALANINE AMINOTRANSFERASE 96 U/L (12-78); ALBUMIN 3.5 g/dL (3.4-5.0); ANION GAP 10 mmol/L (5-15); CHLORIDE 108 mmol/L (98-107); CREATININE 0.91 mg/dL (0.7-1.3)
[2018-07-15 17:39] LABS: ALKALINE PHOSPHATASE 126 U/L (45-117); BILIRUBIN,TOTAL 0.7 mg/dL (0.2-1.0); TOTAL PROTEIN 6.8 g/dL (6.4-8.2)
== END 2018-07-15 17:18 | disposition left against medical advice (07) ==
LOC: ED 17:12
DX: K29.20 Alcoholic gastritis without bleeding (principal); F10.20 Alcohol dependence, uncomplicated; K21.9 Gastro-esophageal reflux disease without esophagitis; Z87.891 Personal history of nicotine dependence; Z79.899 Other long term (current) drug therapy
CPT/HCPCS: 36415; 80053; 80307; 83690; 85025; 99284

== ENCOUNTER 2018-08-13 14:39 | Emergency (ER) | payer MEDICAID ==
[~2018-08-13] VITALS: Ht 182.9 cm; Wt 80.2 kg
[2018-08-13] MEDS ORDERED: ONDANSETRON 2MG/ML, 2ML IVPush ONE (16:00)
[2018-08-13] MEDS ORDERED: MORPHINE SULFATE 4 MG/ML, 1ML IVPush PRN (16:00)
[2018-08-13] MEDS ORDERED: SODIUM CHLORIDE FLUSH 10ML SYR IVF ONE (16:00)
[2018-08-13 16:04] LABS: INTERNATIONAL NORMALIZED RATIO 1.06 (0.93-1.1); PROTHROMBIN TIME 10.9 Seconds (9.6-11.5)
[2018-08-13 16:06] LABS: ALANINE AMINOTRANSFERASE 48 U/L (12-78); ALBUMIN 4.1 g/dL (3.4-5.0); ANION GAP 11 mmol/L (5-15); BASOPHILS # (AUTO) 0.02 x10^3/uL (0-0.1); BASOPHILS % (AUTO) 0 % (0-1); CALCIUM 8.2 mg/dL (8.5-10.1); CHLORIDE 111 mmol/L (98-107); CREATININE 0.86 mg/dL (0.7-1.3); EOSINOPHILS # (AUTO) 0.19 x10^3/uL (0-0.4); EOSINOPHILS % (AUTO) 3 % (1-7); LYMPHOCYTES # (AUTO) 2.84 x10^3/uL (1-3.4); LYMPHOCYTES % (AUTO) 43 % (22-44); MD NO; MEAN CORPUSCULAR HGB CONC 33.7 g/dL (33.2-36.2); MEAN CORPUSCULAR VOLUME 98.2 fL (81-97); MEAN PLATELET VOLUME 8.9 fL (7.4-10.4); MONOCYTES # (AUTO) 0.37 x10^3/uL (0.2-0.8); MONOCYTES % (AUTO) 6 % (2-9); NEUTROPHILS # (AUTO) 3.16 x10^3/uL (1.8-6.8); NEUTROPHILS % (AUTO) 48 % (42-75); PLATELET COUNT 241 x10^3/uL (130-400); RED CELL DISTRIBUTION WIDTH 13.2 % (9.4-14.8)
[2018-08-13 16:08] LABS: ALKALINE PHOSPHATASE 134 U/L (45-117); BILIRUBIN,TOTAL 0.6 mg/dL (0.2-1.0)
[2018-08-13] MEDS ORDERED: FAMOTIDINE 20 MG/2 ML IVPush ONE (16:30)
[2018-08-13] MEDS ORDERED: ONDANSETRON 2MG/ML, 2ML ONE (16:39)
[2018-08-13] MEDS ORDERED: FAMOTIDINE 20 MG/2 ML ONE (16:40)
[2018-08-13 17:20] VITALS: BP 132/74
== END 2018-08-13 17:22 | disposition home or self-care (01) ==
LOC: ED 16:05
DX: K29.20 Alcoholic gastritis without bleeding (principal)
CPT/HCPCS: 36415; 76700; 80053; 80307; 83690; 85025; 85610; 96374; 96375; 99285; J2405; S0028

== ENCOUNTER 2018-08-18 22:52 | Emergency (ER) | payer MEDICAID ==
[~2018-08-18] VITALS: Ht 182.9 cm; Wt 79.6 kg
[2018-08-18] MEDS ORDERED: SODIUM CHLORIDE FLUSH 10ML SYR IVF ONE (23:30)
[2018-08-18] MEDS ORDERED: KETOROLAC 30 MG/1 ML IV ONE (23:30)
[2018-08-18] MEDS ORDERED: SODIUM CHLORIDE 0.9% 1,000ML IVBOLUS ONE (23:30)
[2018-08-18] MEDS ORDERED: KETOROLAC 30 MG/1 ML ONE (23:40)
[2018-08-19 01:42] VITALS: BP 132/80
== END 2018-08-19 01:09 | disposition home or self-care (01) ==
LOC: ED 23:10
DX: R51 Headache (principal); K21.9 Gastro-esophageal reflux disease without esophagitis; R10.9 Unspecified abdominal pain; G89.29 Other chronic pain
CPT/HCPCS: 70450; 96361; 96374; 99284; J1885; J7030

== ENCOUNTER 2018-08-21 16:41 | Emergency (ER) | payer MEDICAID ==
[~2018-08-21] VITALS: Ht 182.9 cm; Wt 80.0 kg
[2018-08-21 16:49] VITALS: BP 116/82
[2018-08-21] MEDS ORDERED: ONDANSETRON ODT 4 MG PO ONE (17:00)
[2018-08-21] MEDS ORDERED: PLEASE ENTER HEIGHT AND WEIGHT MC SCH (17:00)
[2018-08-21] MEDS ORDERED: LORazepam 1MG TABLET PO ONE (17:00)
== END 2018-08-21 18:02 | disposition home or self-care (01) ==
LOC: ED 17:56
DX: F10.229 Alcohol dependence with intoxication, unspecified (principal)
CPT/HCPCS: 99281

== ENCOUNTER 2018-10-01 11:51 | Emergency (ER) | payer MEDICAID ==
[~2018-10-01] VITALS: Ht 182.9 cm; Wt 75.7 kg
--- NOTE | 2018-10-01 12:25 | NUR ---
[facility]
--- NOTE | 2018-10-01 12:45 | NUR ---
patient ambulated to room, bathroom, and back to room safely unassisted. JANET Avendano at bedside for assessment, patient changed into gown, on cardiac and pulse ox monitoring, moderately anxious and tremulous in the hands. zero pain now, patient reports that his heart feels like it is racing, and he is shaky. call light in reach, safety maintained, urine sample obtained, VSS on room air.
--- NOTE | 2018-10-01 12:49 | NUR ---
during assessment patient has mentioned that he took part in a "psychic" group ceremony the day prior to onset of symptoms, he states that the group all took "some sort of sedative" which was a milky looking liquid and pill fragments taken orally.
[2018-10-01] MEDS ORDERED: LORazepam 2 MG/ML, 1ML IVPush ONE (13:00)
[2018-10-01] MEDS ORDERED: SODIUM CHLORIDE FLUSH 10ML SYR IVF ONE (13:00)
[2018-10-01 13:10] LABS: BASOPHILS # (AUTO) 0.02 x10^3/uL (0-0.1); BASOPHILS % (AUTO) 0 % (0-1); EOSINOPHILS # (AUTO) 0.01 x10^3/uL (0-0.4); EOSINOPHILS % (AUTO) 0 % (1-7); LYMPHOCYTES # (AUTO) 0.94 x10^3/uL (1-3.4); LYMPHOCYTES % (AUTO) 13 % (22-44); MD NO; MEAN CORPUSCULAR HEMOGLOBIN 33.9 pg (27.5-34.5); MEAN CORPUSCULAR HGB CONC 34.4 g/dL (33.2-36.2); MEAN CORPUSCULAR VOLUME 98.6 fL (81-97); MEAN PLATELET VOLUME 9.6 fL (7.4-10.4); MONOCYTES # (AUTO) 0.49 x10^3/uL (0.2-0.8); MONOCYTES % (AUTO) 7 % (2-9); NEUTROPHILS % (AUTO) 80 % (42-75); PLATELET COUNT 109 x10^3/uL (130-400); RED BLOOD COUNT 4.06 x10^6/uL (4.38-5.82); RED CELL DISTRIBUTION WIDTH 14.4 % (9.4-14.8)
--- NOTE | 2018-10-01 13:10 | NUR ---
assumed care of pt. report from Tommie TELLEZ. pt here for tremulous activity and palpitations x3 days. pt reports that he has a long hx of ETOH abuse and that his last drink was about 5 days ago. pt reports that he has not had any seizure like activity. pt denies CP. reports that he is not taking any medications for withdrawl sx. no SOB. pt is ST on monitor. reports that he has had difficulty sleeping as well.
--- NOTE | 2018-10-01 13:12 | NUR ---
unsuccessful IV attempt x2 by previous RN
[2018-10-01 13:17] LABS: ALANINE AMINOTRANSFERASE 41 U/L (12-78); ALBUMIN 3.3 g/dL (3.4-5.0); ANION GAP 11 mmol/L (5-15); CALCIUM 8.2 mg/dL (8.5-10.1); CHLORIDE 104 mmol/L (98-107); CREATININE 0.71 mg/dL (0.7-1.3)
--- NOTE | 2018-10-01 13:20 | NUR ---
urine was collected and sent by previous RN
[2018-10-01 13:21] LABS: ALKALINE PHOSPHATASE 85 U/L (45-117); BILIRUBIN,TOTAL 0.8 mg/dL (0.2-1.0); TOTAL PROTEIN 6.6 g/dL (6.4-8.2); TROPONIN I < 0.015 ng/mL (0.000-0.045)
[2018-10-01] MEDS ORDERED: LORazepam 2 MG/ML, 1ML ONE ×3 (13:25→14:54)
--- NOTE | 2018-10-01 13:45 | NUR ---
pt reports hallucinations last nocs. pt education given regarding ETOH withdrawl. pt is tremulous. A&O x4 at this time. seizure precations in place. aware. pt asking for water, ok per Dr Horvath
[2018-10-01] MEDS ORDERED: POTASSIUM CHLORIDE 20 MEQ TAB.ER.PRT PO ONE (14:00)
--- NOTE | 2018-10-01 14:05 | NUR ---
Dr vaz at bedside for eval
[2018-10-01] MEDS ORDERED: POTASSIUM CHLORIDE 20 MEQ TAB.ER.PRT ONE (14:10)
[2018-10-01] MEDS: LORazepam 2 MG/ML, 1ML IVPush PRN ×2 (14:17→14:57)
--- NOTE | 2018-10-01 14:21 | NUR ---
pt still tremulous. medicated per order
[2018-10-01] MEDS ORDERED: THIAMINE 100MG TABLET PO ONE (14:30)
[2018-10-01 14:50] LABS: MICROSCOPIC NOT IND
[2018-10-01 14:53] LABS: CULTURE INDICATED? NO
[2018-10-01] MEDS ORDERED: THIAMINE 100MG TABLET ONE (14:56)
[2018-10-01 15:08] LABS: AMPHETAMINE SCREEN, URINE Negative (Negative); BARBITURATE SCREEN, URINE Negative (Negative); BENZODIAZEPINE SCREEN, URINE Positive (Negative); CANNABINOID SCREEN, URINE Negative (Negative); COCAINE SCREEN, URINE Negative (Negative); METHADONE SCREEN, URINE Negative (Negative); OPIATE SCREEN, URINE Negative (Negative)
[2018-10-01 15:30] VITALS: BP 137/87
--- NOTE | 2018-10-01 15:32 | NUR ---
Dr vaz has been to bedside for recheck
--- NOTE | 2018-10-01 15:40 | NUR ---
pt has eloped from department. pt pulled out his own IV and it was left on the bed. Dr Horvath notified
== END 2018-10-01 15:59 | disposition left against medical advice (07) ==
LOC: ED 13:13
DX: R00.2 Palpitations (principal); K21.9 Gastro-esophageal reflux disease without esophagitis; F41.1 Generalized anxiety disorder; Z72.9 Problem related to lifestyle, unspecified
CPT/HCPCS: 36415; 71045; 80053; 80307; 81003; 84484; 85025; 93005; 96374; 96376; 99284; J2060

== ENCOUNTER 2018-10-04 16:34 | Emergency (ER) | payer MEDICAID ==
[~2018-10-04] VITALS: Ht 182.9 cm; Wt 75.3 kg
[2018-10-04 17:42] LABS: BASOPHILS # (AUTO) 0.02 x10^3/uL (0-0.1); BASOPHILS % (AUTO) 0 % (0-1); EOSINOPHILS # (AUTO) 0.02 x10^3/uL (0-0.4); EOSINOPHILS % (AUTO) 1 % (1-7); LYMPHOCYTES # (AUTO) 1.49 x10^3/uL (1-3.4); LYMPHOCYTES % (AUTO) 27 % (22-44); MD NO; MEAN CORPUSCULAR HEMOGLOBIN 34.1 pg (27.5-34.5); MEAN CORPUSCULAR HGB CONC 34.4 g/dL (33.2-36.2); MEAN PLATELET VOLUME 8.7 fL (7.4-10.4); MONOCYTES # (AUTO) 0.62 x10^3/uL (0.2-0.8); MONOCYTES % (AUTO) 11 % (2-9); NEUTROPHILS # (AUTO) 3.38 x10^3/uL (1.8-6.8); NEUTROPHILS % (AUTO) 61 % (42-75); PLATELET COUNT 192 x10^3/uL (130-400); RED BLOOD COUNT 4.75 x10^6/uL (4.38-5.82); RED CELL DISTRIBUTION WIDTH 15.2 % (9.4-14.8)
[2018-10-04 17:43] LABS: ANION GAP 11 mmol/L (5-15); CALCIUM 7.9 mg/dL (8.5-10.1); CHLORIDE 107 mmol/L (98-107); CREATININE 0.95 mg/dL (0.7-1.3)
[2018-10-04 17:44] LABS: ALANINE AMINOTRANSFERASE 51 U/L (12-78); ALBUMIN 3.6 g/dL (3.4-5.0)
[2018-10-04 17:45] LABS: SALICYLATE LEVEL < 1.7 mg/dL (2.8-20.0)
[2018-10-04 17:46] LABS: ALKALINE PHOSPHATASE 92 U/L (45-117); BILIRUBIN,TOTAL 0.7 mg/dL (0.2-1.0); TOTAL PROTEIN 6.9 g/dL (6.4-8.2)
[2018-10-04 17:48] LABS: ACETAMINOPHEN < 2 mcg/mL (10-30)
[2018-10-04] MEDS ORDERED: FLUO40CA9 PO (18:07)
[2018-10-04 18:59] LABS: AMPHETAMINE SCREEN, URINE Negative (Negative); BARBITURATE SCREEN, URINE Negative (Negative); BENZODIAZEPINE SCREEN, URINE Positive (Negative); CANNABINOID SCREEN, URINE Negative (Negative); COCAINE SCREEN, URINE Negative (Negative); METHADONE SCREEN, URINE Negative (Negative); OPIATE SCREEN, URINE Negative (Negative)
[2018-10-04] MEDS ORDERED: POTASSIUM CHLORIDE 20 MEQ TAB.ER.PRT ONE (19:47)
[2018-10-04] MEDS ORDERED: POTASSIUM CHLORIDE 20 MEQ TAB.ER.PRT PO ONE (20:00)
[2018-10-04 20:05] VITALS: BP 115/77
== END 2018-10-04 20:07 | disposition home or self-care (01) ==
LOC: ED 19:27
DX: E87.6 Hypokalemia (principal); F10.129 Alcohol abuse with intoxication, unspecified; K21.9 Gastro-esophageal reflux disease without esophagitis; F17.200 Nicotine dependence, unspecified, uncomplicated; Z72.9 Problem related to lifestyle, unspecified
CPT/HCPCS: 36415; 80053; 80307; 80329; 85025; 99283; G0480

== ENCOUNTER 2018-10-14 12:03 | Emergency (ER) | payer MEDICAID ==
[~2018-10-14] VITALS: Ht 182.9 cm; Wt 75.2 kg
[~2018-10-14 12:03] MED LIST changes: +FLUO40CA9 PO
[2018-10-14 12:09] VITALS: BP 118/88
[2018-10-14] MEDS ORDERED: NAPR220T77 PO (17:42)
== END 2018-10-14 13:32 | disposition left against medical advice (07) ==
LOC: ED 13:15
DX: M54.9 Dorsalgia, unspecified (principal); Z53.21 Procedure and treatment not carried out due to patient leaving prior to being seen by health care provider

== ENCOUNTER 2018-10-14 14:44 | Emergency (ER) | payer MEDICAID ==
[~2018-10-14] VITALS: Ht 182.9 cm; Wt 75.6 kg
[2018-10-14] MEDS ORDERED: ONDANSETRON ODT 4 MG ONE (15:39)
[2018-10-14] MEDS ORDERED: FAMOTIDINE 20 MG/2 ML ONE (15:39)
[2018-10-14] MEDS ORDERED: MAALOX/HYOSCYAMINE/LIDOCAINE 45 ML BTL ONE (15:39)
[2018-10-14] MEDS ORDERED: FAMOTIDINE 20 MG/2 ML IVP ONE (16:00)
[2018-10-14] MEDS ORDERED: ONDANSETRON 2MG/ML, 2ML IVPush ONE (16:00)
[2018-10-14] MEDS ORDERED: MAALOX/HYOSCYAMINE/LIDOCAINE 45 ML BTL PO ONE (16:00)
[2018-10-14] MEDS ORDERED: SODIUM CHLORIDE FLUSH 10ML SYR IVF ONE (16:00)
[2018-10-14 16:07] LABS: ALANINE AMINOTRANSFERASE 77 U/L (12-78); ALBUMIN 3.3 g/dL (3.4-5.0); ANION GAP 15 mmol/L (5-15); CALCIUM 7.8 mg/dL (8.5-10.1); CHLORIDE 110 mmol/L (98-107); CREATININE 0.88 mg/dL (0.7-1.3)
[2018-10-14 16:14] LABS: MICROSCOPIC NOT IND
[2018-10-14 16:15] LABS: CULTURE INDICATED? NO
[2018-10-14 16:19] LABS: ALKALINE PHOSPHATASE 112 U/L (45-117); BILIRUBIN,TOTAL 0.4 mg/dL (0.2-1.0); TOTAL PROTEIN 6.4 g/dL (6.4-8.2)
[2018-10-14 16:47] LABS: BASOPHILS # (AUTO) 0.01 x10^3/uL (0-0.1); BASOPHILS % (AUTO) 0 % (0-1); EOSINOPHILS # (AUTO) 0.01 x10^3/uL (0-0.4); EOSINOPHILS % (AUTO) 0 % (1-7); LYMPHOCYTES # (AUTO) 0.58 x10^3/uL (1-3.4); LYMPHOCYTES % (AUTO) 8 % (22-44); MD NO; MEAN CORPUSCULAR HEMOGLOBIN 33.3 pg (27.5-34.5); MEAN CORPUSCULAR HGB CONC 33.5 g/dL (33.2-36.2); MEAN CORPUSCULAR VOLUME 99.3 fL (81-97); MEAN PLATELET VOLUME 8.3 fL (7.4-10.4); MONOCYTES # (AUTO) 0.24 x10^3/uL (0.2-0.8); MONOCYTES % (AUTO) 3 % (2-9); NEUTROPHILS # (AUTO) 6.42 x10^3/uL (1.8-6.8); NEUTROPHILS % (AUTO) 89 % (42-75); PLATELET COUNT 213 x10^3/uL (130-400); RED BLOOD COUNT 4.51 x10^6/uL (4.38-5.82); RED CELL DISTRIBUTION WIDTH 15.6 % (9.4-14.8)
[2018-10-14 17:39] VITALS: BP 109/75
[2018-10-14] MEDS ORDERED: NAPR220T77 PO (17:42)
== END 2018-10-14 18:21 | disposition home or self-care (01) ==
LOC: ED 16:48
DX: K29.20 Alcoholic gastritis without bleeding (principal); F10.229 Alcohol dependence with intoxication, unspecified; K21.9 Gastro-esophageal reflux disease without esophagitis; F32.9 Major depressive disorder, single episode, unspecified; F41.1 Generalized anxiety disorder
CPT/HCPCS: 36415; 80053; 80307; 81003; 83690; 85025; 96374; 96375; 99283; J2405; J3490

== ENCOUNTER 2018-10-17 11:21 | Emergency (ER) | payer MEDICAID ==
[~2018-10-17] VITALS: Ht 182.9 cm; Wt 77.1 kg
[~2018-10-17 11:21] MED LIST changes: +NAPR220T77 PO
[2018-10-17 12:25] VITALS: BP 120/79
[2018-10-17] MEDS ORDERED: CHLORDIAZEPOXIDE 25 MG CAPSULE PO PRN (12:30)
[2018-10-17] MEDS ORDERED: CHLORDIAZEPOXIDE 25 MG CAPSULE ONE (12:31)
== END 2018-10-17 13:09 | disposition home or self-care (01) ==
LOC: ED 12:43
DX: F10.10 Alcohol abuse, uncomplicated (principal); Z72.9 Problem related to lifestyle, unspecified; F41.1 Generalized anxiety disorder; F32.9 Major depressive disorder, single episode, unspecified; K21.9 Gastro-esophageal reflux disease without esophagitis
CPT/HCPCS: 99282

== ENCOUNTER 2018-10-26 17:24 | Emergency (ER) | payer MEDICAID ==
[~2018-10-26] VITALS: Ht 182.9 cm; Wt 78.4 kg
--- NOTE | 2018-10-26 17:48 | NUR ---
Assumed care of patient. C/O epigastric and LUQ pain radiating to back. Hx chronic pancreatitis and EtOH abuse. DC'd from [facility] for EtOH detox on Sep 25. Relapsed yesterday. Placed on NIBP and pulse ox. Amulatory with a steady gait. Will continue to monitor.
[2018-10-26 17:49] LABS: BASOPHILS # (AUTO) 0.03 x10^3/uL (0-0.1); BASOPHILS % (AUTO) 1 % (0-1); EOSINOPHILS # (AUTO) 0.14 x10^3/uL (0-0.4); EOSINOPHILS % (AUTO) 2 % (1-7); LYMPHOCYTES # (AUTO) 2.25 x10^3/uL (1-3.4); LYMPHOCYTES % (AUTO) 37 % (22-44); MD NO; MEAN CORPUSCULAR HGB CONC 34.3 g/dL (33.2-36.2); MEAN CORPUSCULAR VOLUME 99.1 fL (81-97); MEAN PLATELET VOLUME 8.9 fL (7.4-10.4); MONOCYTES # (AUTO) 0.38 x10^3/uL (0.2-0.8); MONOCYTES % (AUTO) 6 % (2-9); NEUTROPHILS # (AUTO) 3.36 x10^3/uL (1.8-6.8); NEUTROPHILS % (AUTO) 55 % (42-75); PLATELET COUNT 224 x10^3/uL (130-400); RED CELL DISTRIBUTION WIDTH 15.6 % (9.4-14.8)
[2018-10-26 18:00] LABS: ALANINE AMINOTRANSFERASE 41 U/L (12-78); ALBUMIN 3.4 g/dL (3.4-5.0); ANION GAP 8 mmol/L (5-15); CALCIUM 7.6 mg/dL (8.5-10.1); CHLORIDE 112 mmol/L (98-107); CREATININE 0.89 mg/dL (0.7-1.3)
[2018-10-26 18:03] LABS: ALKALINE PHOSPHATASE 113 U/L (45-117); BILIRUBIN,TOTAL 0.2 mg/dL (0.2-1.0); TOTAL PROTEIN 6.6 g/dL (6.4-8.2)
--- NOTE | 2018-10-26 18:12 | NUR ---
Patient to xray.
[2018-10-26 18:26] LABS: MICROSCOPIC NOT IND
[2018-10-26 18:30] LABS: CULTURE INDICATED? NO
[2018-10-26 18:40] VITALS: BP 107/77
--- NOTE | 2018-10-26 19:11 | NUR ---
Patient/Caregiver given discharge instructions and they have confirmed that they understand the instructions. Patient ambulatory with steady gait.
== END 2018-10-26 19:12 ==
LOC: ED 18:40
DX: K29.20 Alcoholic gastritis without bleeding (principal); F10.220 Alcohol dependence with intoxication, uncomplicated; F41.1 Generalized anxiety disorder; F32.9 Major depressive disorder, single episode, unspecified; K21.9 Gastro-esophageal reflux disease without esophagitis
CPT/HCPCS: 36415; 74021; 80053; 81003; 83690; 85025; 99284

== ENCOUNTER 2018-11-08 20:55 | Emergency (ER) | payer MEDICAID ==
[~2018-11-08] VITALS: Ht 185.4 cm; Wt 91.0 kg
[2018-11-08 20:58] VITALS: BP 110/73
--- NOTE | 2018-11-08 21:44 | NUR ---
PT ELOPED OUT LOBBY WITH STEADY GAIT
== END 2018-11-08 21:45 | disposition left against medical advice (07) ==
LOC: ED 21:05
DX: F41.9 Anxiety disorder, unspecified (principal); Z53.21 Procedure and treatment not carried out due to patient leaving prior to being seen by health care provider

== ENCOUNTER 2018-11-21 12:19 | Emergency (ER) | payer MEDICAID ==
[~2018-11-21] VITALS: Ht 182.9 cm; Wt 78.9 kg
[2018-11-21] MEDS ORDERED: IBUPROFEN 600 MG TABLET ONE (12:44)
--- NOTE | 2018-11-21 12:46 | NUR ---
PT HERE FOR HELP WITH DETOX FROM ALCOHOL. STATES HE DRINKS ABOUT A PINT A DAY AND FEELS THAT HIS BLOOD ALCOHOL LEVEL IS PROBABLY AROUND 0.40. PT TEARFUL, BUT DENIES ANY CURRENT OR PAST SUICIDE IDEAS OR ATTEMPTS. NO PHYSICAL COMPLAINT. HX OF PANCREATITIS. RECOVERING FROM NARCOTIC ABUSE.
[2018-11-21 15:22] VITALS: BP 104/73
--- NOTE | 2018-11-21 15:23 | NUR ---
Patient/Caregiver given discharge instructions and they have confirmed that they understand the instructions. Patient ambulatory with steady gait.
--- NOTE | 2018-11-21 15:23 | NUR ---
TAXI VOUCHER GIVEN FOR RIDE TO [facility].
== END 2018-11-21 15:24 | disposition home or self-care (01) ==
LOC: ED 15:18
DX: F10.220 Alcohol dependence with intoxication, uncomplicated (principal); K21.9 Gastro-esophageal reflux disease without esophagitis; I10 Essential (primary) hypertension; F41.1 Generalized anxiety disorder; F32.9 Major depressive disorder, single episode, unspecified; S50.11XA Contusion of right forearm, initial encounter; X58.XXXA Exposure to other specified factors, initial encounter; Y93.89 Activity, other specified; Y92.89 Other specified places as the place of occurrence of the external cause; Y99.8 Other external cause status
CPT/HCPCS: 99281

== ENCOUNTER 2019-03-05 16:38 | Emergency (ER) | payer MEDICAID ==
[~2019-03-05] VITALS: Ht 182.9 cm; Wt 80.8 kg
[2019-03-05] MEDS ORDERED: SODIUM CHLORIDE FLUSH 10ML SYR IVF ONE (18:00)
[2019-03-05] MEDS ORDERED: ONDANSETRON 2MG/ML, 2ML IVPush ONE (18:00)
[2019-03-05] MEDS ORDERED: ONDANSETRON 2MG/ML, 2ML ONE (18:05)
[2019-03-05 18:16] LABS: BASOPHILS # (AUTO) 0.02 x10^3/uL (0-0.1); BASOPHILS % (AUTO) 0 % (0-1); EOSINOPHILS # (AUTO) 0.09 x10^3/uL (0-0.4); EOSINOPHILS % (AUTO) 1 % (1-7); LYMPHOCYTES # (AUTO) 2.64 x10^3/uL (1-3.4); LYMPHOCYTES % (AUTO) 32 % (22-44); MD NO; MEAN CORPUSCULAR HEMOGLOBIN 32.8 pg (27.5-34.5); MEAN CORPUSCULAR HGB CONC 34.3 g/dL (33.2-36.2); MEAN CORPUSCULAR VOLUME 95.5 fL (81-97); MEAN PLATELET VOLUME 8.8 fL (7.4-10.4); MONOCYTES # (AUTO) 0.42 x10^3/uL (0.2-0.8); MONOCYTES % (AUTO) 5 % (2-9); NEUTROPHILS # (AUTO) 5.08 x10^3/uL (1.8-6.8); NEUTROPHILS % (AUTO) 62 % (42-75); PLATELET COUNT 209 x10^3/uL (130-400); RED BLOOD COUNT 5.09 x10^6/uL (4.38-5.82); RED CELL DISTRIBUTION WIDTH 14.4 % (9.4-14.8)
--- NOTE | 2019-03-05 18:16 | NUR ---
Assumed care of patient. C/O LBP after falling off ladder this AM. Back pain was exacerbated after taking hit while playing volleyball this afternoon. IV started. Will continue to monitor.
[2019-03-05 18:23] LABS: ALANINE AMINOTRANSFERASE 49 U/L (12-78); ALBUMIN 4.1 g/dL (3.4-5.0); ANION GAP 8 mmol/L (5-15); CALCIUM 8.2 mg/dL (8.5-10.1); CHLORIDE 112 mmol/L (98-107)
[2019-03-05 18:26] LABS: ALKALINE PHOSPHATASE 102 U/L (45-117); BILIRUBIN,TOTAL 0.3 mg/dL (0.2-1.0); CREATININE 1.15 mg/dL (0.7-1.3); TOTAL PROTEIN 7.2 g/dL (6.4-8.2)
[2019-03-05] MEDS ORDERED: OMNIPAQUE 350 MG/ML, 100ML BOTTLE ONE (19:13)
[2019-03-05 19:15] VITALS: BP 107/78
--- NOTE | 2019-03-05 19:20 | NUR ---
Back from CT. VSS. No needs.
--- NOTE | 2019-03-05 19:57 | NUR ---
Patient/Caregiver given discharge instructions and they have confirmed that they understand the instructions. Patient ambulatory with steady gait.
== END 2019-03-05 19:58 | disposition home or self-care (01) ==
LOC: ED 19:22
DX: M54.5 Low back pain (principal); K29.20 Alcoholic gastritis without bleeding; Z72.9 Problem related to lifestyle, unspecified; K21.9 Gastro-esophageal reflux disease without esophagitis; F32.9 Major depressive disorder, single episode, unspecified; W11.XXXA Fall on and from ladder, initial encounter; Y93.89 Activity, other specified; Y92.89 Other specified places as the place of occurrence of the external cause; Y99.8 Other external cause status
CPT/HCPCS: 36415; 74177; 80053; 83690; 85025; 99284; Q9967

== ENCOUNTER 2019-03-19 17:09 | Emergency (ER) | payer MEDICAID ==
[~2019-03-19] VITALS: Ht 182.9 cm; Wt 79.8 kg
[2019-03-19 17:15] VITALS: BP 108/80
[2019-03-19 17:48] LABS: BASOPHILS # (AUTO) 0.02 x10^3/uL (0-0.1); BASOPHILS % (AUTO) 0 % (0-1); EOSINOPHILS % (AUTO) 2 % (1-7); LYMPHOCYTES # (AUTO) 1.53 x10^3/uL (1-3.4); LYMPHOCYTES % (AUTO) 36 % (22-44); MD NO; MEAN CORPUSCULAR HEMOGLOBIN 32.6 pg (27.5-34.5); MEAN CORPUSCULAR HGB CONC 33.3 g/dL (33.2-36.2); MEAN CORPUSCULAR VOLUME 97.8 fL (81-97); MEAN PLATELET VOLUME 8.7 fL (7.4-10.4); MONOCYTES # (AUTO) 0.31 x10^3/uL (0.2-0.8); MONOCYTES % (AUTO) 7 % (2-9); NEUTROPHILS # (AUTO) 2.31 x10^3/uL (1.8-6.8); NEUTROPHILS % (AUTO) 54 % (42-75); PLATELET COUNT 205 x10^3/uL (130-400); RED CELL DISTRIBUTION WIDTH 14.5 % (9.4-14.8)
[2019-03-19 17:57] LABS: CULTURE INDICATED? NO; MICROSCOPIC NOT IND
[2019-03-19] MEDS ORDERED: KETOROLAC 30 MG/1 ML ONE (17:58)
[2019-03-19] MEDS ORDERED: METHOCARBAMOL 750 MG TABLET ONE (17:58)
[2019-03-19 17:59] LABS: ALANINE AMINOTRANSFERASE 44 U/L (12-78); ALBUMIN 3.9 g/dL (3.4-5.0); ANION GAP 6 mmol/L (5-15); CHLORIDE 111 mmol/L (98-107); CREATININE 1.11 mg/dL (0.7-1.3)
[2019-03-19] MEDS ORDERED: METHOCARBAMOL 750 MG TABLET PO ONE (18:00)
[2019-03-19] MEDS ORDERED: KETOROLAC 30 MG/1 ML IM ONE (18:00)
[2019-03-19 18:02] LABS: ALKALINE PHOSPHATASE 96 U/L (45-117); BILIRUBIN,TOTAL 0.2 mg/dL (0.2-1.0); TOTAL PROTEIN 7.3 g/dL (6.4-8.2)
--- NOTE | 2019-03-19 18:45 | NUR ---
Patient/Caregiver given discharge instructions and they have confirmed that they understand the instructions. Patient ambulatory with steady gait.
== END 2019-03-19 18:46 | disposition home or self-care (01) ==
LOC: ED 18:40
DX: S39.012A Strain of muscle, fascia and tendon of lower back, initial encounter (principal); R30.0 Dysuria; K21.9 Gastro-esophageal reflux disease without esophagitis; I10 Essential (primary) hypertension; Z72.9 Problem related to lifestyle, unspecified; X50.3XXA Overexertion from repetitive movements, initial encounter; Y93.89 Activity, other specified; Y92.89 Other specified places as the place of occurrence of the external cause; Y99.8 Other external cause status
CPT/HCPCS: 36415; 80053; 81003; 85025; 96372; 99283; J1885

== ENCOUNTER 2019-04-10 20:09 | Emergency (ER) | payer MEDICAID ==
--- NOTE | 2019-04-10 20:16 | NUR ---
ATTEMPTED TO CALL PT FROM LOBBY TO TRIAGE. PT NIL X 1
--- NOTE | 2019-04-10 20:22 | NUR ---
ATTEMPTED TO CALL PT FROM LOBBY TO TRIAGE. NIL X 2.
--- NOTE | 2019-04-10 20:42 | NUR ---
PT NOT IN LOBBY AFTER 3RD ATTEMPT TO CALL FROM LOBBY TO TRIAGE ROOM.
== END 2019-04-10 20:48 | disposition left against medical advice (07) ==
LOC: ED 20:42
DX: M79.605 Pain in left leg (principal); Z53.21 Procedure and treatment not carried out due to patient leaving prior to being seen by health care provider

== ENCOUNTER 2019-04-10 20:50 | Emergency (ER) | payer MEDICAID ==
[~2019-04-10] VITALS: Ht 182.9 cm; Wt 79.3 kg
[2019-04-10] MEDS ORDERED: BACITRACIN ZINC OINT 500U/GM, 0.9 GM ONE (21:09)
== END 2019-04-10 21:31 | disposition home or self-care (01) ==
LOC: ED 21:29
DX: S81.812D Laceration without foreign body, left lower leg, subsequent encounter (principal); I10 Essential (primary) hypertension; K21.9 Gastro-esophageal reflux disease without esophagitis; X58.XXXD Exposure to other specified factors, subsequent encounter
CPT/HCPCS: 99282

== ENCOUNTER 2019-05-18 18:44 | Emergency (ER) | payer MEDICAID ==
[~2019-05-18] VITALS: Ht 182.9 cm; Wt 80.0 kg
[2019-05-18 19:17] VITALS: BP 140/78
== END 2019-05-18 21:51 | disposition left against medical advice (07) ==
LOC: ED 21:45
DX: M79.672 Pain in left foot (principal); Z53.21 Procedure and treatment not carried out due to patient leaving prior to being seen by health care provider

== ENCOUNTER 2019-05-19 17:25 | Emergency (ER) | payer MEDICAID ==
[~2019-05-19] VITALS: Ht 182.9 cm; Wt 79.6 kg
[2019-05-19 18:09] VITALS: BP 111/57
== END 2019-05-19 18:54 | disposition home or self-care (01) ==
LOC: ED 17:44
DX: R51 Headache (principal); F41.1 Generalized anxiety disorder; I10 Essential (primary) hypertension
CPT/HCPCS: 96374; 96375; 99283; J1200; J1885; J2765

== ENCOUNTER 2019-06-01 18:37 | Emergency (ER) | payer MEDICAID ==
[~2019-06-01] VITALS: Ht 182.9 cm; Wt 78.1 kg
[2019-06-01 18:45] VITALS: BP 118/81
== END 2019-06-01 19:40 | disposition home or self-care (01) ==
LOC: ED 19:24
DX: S50.11XA Contusion of right forearm, initial encounter (principal); S50.811A Abrasion of right forearm, initial encounter; W23.0XXA Caught, crushed, jammed, or pinched between moving objects, initial encounter; Y93.89 Activity, other specified; Y92.89 Other specified places as the place of occurrence of the external cause; Y99.8 Other external cause status
CPT/HCPCS: 99283

== ENCOUNTER 2019-06-04 20:42 | Emergency (ER) | payer MEDICAID ==
[~2019-06-04] VITALS: Ht 182.9 cm; Wt 77.1 kg
[2019-06-04 20:45] VITALS: BP 119/80
== END 2019-06-04 21:34 | disposition left against medical advice (07) ==
LOC: ED 21:23
DX: S80.811A Abrasion, right lower leg, initial encounter (principal); I10 Essential (primary) hypertension; K21.9 Gastro-esophageal reflux disease without esophagitis; Z72.9 Problem related to lifestyle, unspecified; X58.XXXA Exposure to other specified factors, initial encounter; Y93.89 Activity, other specified; Y92.89 Other specified places as the place of occurrence of the external cause; Y99.8 Other external cause status
CPT/HCPCS: 99281

== ENCOUNTER 2019-06-09 15:43 | Emergency (ER) | payer MEDICAID | END 2019-06-09 15:54 | disposition left against medical advice (07) | LOC: ED 15:50 | DX: M79.671 Pain in right foot (principal); Z53.21 Procedure and treatment not carried out due to patient leaving prior to being seen by health care provider ==

== ENCOUNTER 2019-06-10 03:03 | Emergency (ER) | payer MEDICAID ==
[~2019-06-10] VITALS: Ht 182.9 cm; Wt 75.5 kg
[2019-06-10 03:04] VITALS: BP 107/81
== END 2019-06-10 03:42 | disposition home or self-care (01) ==
LOC: ED 03:15
DX: M25.571 Pain in right ankle and joints of right foot (principal); Z72.9 Problem related to lifestyle, unspecified; I10 Essential (primary) hypertension; F41.1 Generalized anxiety disorder; K21.9 Gastro-esophageal reflux disease without esophagitis
CPT/HCPCS: 99281

== ENCOUNTER 2019-10-12 14:11 | Emergency (ER) | payer SELFPAY ==
[~2019-10-12] VITALS: Ht 182.9 cm; Wt 79.3 kg
[~2019-10-12 14:11] MED LIST changes: -HYDR1TAB14 PO; +HYDR1TAB15 PO
[2019-10-12 14:35] VITALS: BP 111/72
--- NOTE | 2019-10-12 14:42 | NUR ---
PT TOLD HE WOULD BE GOING BACK TO A ROOM. PT STATES, "I THINK I'M GOING TO LEAVE" DISCUSSED WITH PT, HE CAN BE SEEN BY A PHYSICIAN AND BE GIVEN DETOX INFO AND REFERRALS. PT DECLINED. PT LEFT TRIAGE, AMB. PT HAD STATED "MY DROPPED ME OFF"
== END 2019-10-12 14:46 | disposition left against medical advice (07) ==
LOC: ED 14:30
DX: Z53.21 Procedure and treatment not carried out due to patient leaving prior to being seen by health care provider (principal)

== ENCOUNTER 2019-10-12 21:22 | Emergency (ER) | payer BC ==
[~2019-10-12] VITALS: Ht 182.9 cm; Wt 79.8 kg
--- NOTE | 2019-10-12 21:28 | NUR ---
METAL HANDLER: PT CALLED FOR TRIAGE Addendum: 10/12/19 at 2132 by HUMZA NO ANSWER WHEN CALLED FOR TRIAGE
--- NOTE | 2019-10-13 00:22 | NUR ---
First contact w/ pt: Pt presents to ed c/o epigastric painxmultiple days. States "i recently fell off the wagon." States drinking "a lot" of etoh last couple of days. Recovering alcoholic per self report. Denies v/blood in stool or urine. Monitoring applied. Vss. Call light within reach.
[2019-10-13] MEDS ORDERED: MAALOX/HYOSCYAMINE/LIDOCAINE 45 ML BTL ONE (00:24)
[2019-10-13] MEDS ORDERED: ONDANSETRON ODT 4 MG ONE (00:24)
[2019-10-13] MEDS ORDERED: FAMOTIDINE 20 MG TABLET ONE (00:24)
[2019-10-13 00:25] LABS: BASOPHILS % (AUTO) 0 % (0-1); EOSINOPHILS % (AUTO) 2 % (1-7); LYMPHOCYTES # (AUTO) 1.19 x10^3/uL (1-3.4); LYMPHOCYTES % (AUTO) 19 % (22-44); MD NO; MEAN CORPUSCULAR HEMOGLOBIN 33.8 pg (27.5-34.5); MEAN CORPUSCULAR HGB CONC 33.2 g/dL (33.2-36.2); MEAN PLATELET VOLUME 7.9 fL (7.4-10.4); MONOCYTES # (AUTO) 0.16 x10^3/uL (0.2-0.8); MONOCYTES % (AUTO) 3 % (2-9); NEUTROPHILS # (AUTO) 4.99 x10^3/uL (1.8-6.8); NEUTROPHILS % (AUTO) 77 % (42-75); PLATELET COUNT 384 x10^3/uL (130-400); RED BLOOD COUNT 4.13 x10^6/uL (4.38-5.82); RED CELL DISTRIBUTION WIDTH 16.3 % (9.4-14.8)
[2019-10-13] MEDS ORDERED: ONDANSETRON ODT 4 MG PO ONE (00:30)
[2019-10-13] MEDS ORDERED: FAMOTIDINE 20 MG TABLET PO ONE (00:30)
[2019-10-13] MEDS ORDERED: MAALOX/HYOSCYAMINE/LIDOCAINE 45 ML BTL PO ONE (00:30)
[2019-10-13 00:37] LABS: ALANINE AMINOTRANSFERASE 56 U/L (12-78); ALBUMIN 3.7 g/dL (3.4-5.0); ANION GAP 12 mmol/L (5-15); CALCIUM 7.9 mg/dL (8.5-10.1); CHLORIDE 110 mmol/L (98-107)
[2019-10-13 00:39] LABS: ALKALINE PHOSPHATASE 105 U/L (45-117); BILIRUBIN,TOTAL 0.2 mg/dL (0.2-1.0); TOTAL PROTEIN 7.3 g/dL (6.4-8.2)
--- NOTE | 2019-10-13 00:52 | NUR ---
PT UP FOR DISCHARGE. PT NOT IN ROOM AT THIS TIME HOWEVER HIS BELONINGS ARE STILL PRESENT IN ROOM.
[2019-10-13 01:09] VITALS: BP 134/74
== END 2019-10-13 01:10 | disposition home or self-care (01) ==
LOC: ED 10-13 01:05
DX: K29.20 Alcoholic gastritis without bleeding (principal); F10.10 Alcohol abuse, uncomplicated; R11.2 Nausea with vomiting, unspecified; K21.9 Gastro-esophageal reflux disease without esophagitis; I10 Essential (primary) hypertension; Y90.0 Blood alcohol level of less than 20 mg/100 ml
CPT/HCPCS: 36415; 80053; 83690; 85025; 99284; Q0162

== ENCOUNTER 2019-10-13 03:46 | Emergency (ER) | payer BC | END 2019-10-13 04:09 | disposition left against medical advice (07) | LOC: ED 03:53 | DX: R10.9 Unspecified abdominal pain (principal); Z53.21 Procedure and treatment not carried out due to patient leaving prior to being seen by health care provider ==

== ENCOUNTER 2019-11-06 12:15 | Emergency (ER) | payer BC ==
[~2019-11-06] VITALS: Ht 182.9 cm; Wt 76.3 kg
[2019-11-06 12:43] VITALS: BP 119/78
[2019-11-06] MEDS ORDERED: ONDANSETRON 2MG/ML, 2ML IVPush ONE (13:00)
[2019-11-06] MEDS ORDERED: SODIUM CHLORIDE FLUSH 10ML SYR IVF ONE (13:00)
[2019-11-06 13:24] LABS: BASOPHILS # (AUTO) 0.04 x10^3/uL (0-0.1); BASOPHILS % (AUTO) 1 % (0-1); EOSINOPHILS # (AUTO) 0.04 x10^3/uL (0-0.4); EOSINOPHILS % (AUTO) 1 % (1-7); LYMPHOCYTES # (AUTO) 1.63 x10^3/uL (1-3.4); LYMPHOCYTES % (AUTO) 52 % (22-44); MD NO; MEAN CORPUSCULAR HEMOGLOBIN 33.4 pg (27.5-34.5); MEAN CORPUSCULAR HGB CONC 33.7 g/dL (33.2-36.2); MEAN CORPUSCULAR VOLUME 99.2 fL (81-97); MEAN PLATELET VOLUME 8.8 fL (7.4-10.4); MONOCYTES # (AUTO) 0.18 x10^3/uL (0.2-0.8); MONOCYTES % (AUTO) 6 % (2-9); NEUTROPHILS # (AUTO) 1.28 x10^3/uL (1.8-6.8); NEUTROPHILS % (AUTO) 40 % (42-75); PLATELET COUNT 216 x10^3/uL (130-400); RED BLOOD COUNT 4.87 x10^6/uL (4.38-5.82); RED CELL DISTRIBUTION WIDTH 15.8 % (9.4-14.8)
--- NOTE | 2019-11-06 13:36 | NUR ---
STOCK FEEDER: PT TO ROOM FROM LOBBY VIA WC, RESP EVEN AND UNLABORED
[2019-11-06 13:39] LABS: ALBUMIN 4.1 g/dL (3.4-5.0); ANION GAP 6 mmol/L (5-15); CALCIUM 8.1 mg/dL (8.5-10.1); CHLORIDE 111 mmol/L (98-107)
[2019-11-06 13:42] LABS: ALANINE AMINOTRANSFERASE 65 U/L (12-78); ALKALINE PHOSPHATASE 109 U/L (45-117); BILIRUBIN,TOTAL 0.7 mg/dL (0.2-1.0); TOTAL PROTEIN 7.6 g/dL (6.4-8.2)
--- NOTE | 2019-11-06 13:52 | NUR ---
pt mostly sleeping. Unhelpful with assessment. Slurring words. Here for abd pain. Awaiting labs.
[2019-11-06] MEDS ORDERED: MAALOX/HYOSCYAMINE/LIDOCAINE 45 ML BTL PO ONE (14:00)
== END 2019-11-06 14:13 | disposition left against medical advice (07) ==
LOC: ED 14:07
DX: K29.20 Alcoholic gastritis without bleeding (principal); F10.10 Alcohol abuse, uncomplicated; K21.9 Gastro-esophageal reflux disease without esophagitis; I10 Essential (primary) hypertension; Z72.9 Problem related to lifestyle, unspecified; Y90.9 Presence of alcohol in blood, level not specified
CPT/HCPCS: 36415; 76700; 80053; 83690; 85025; 99284

== ENCOUNTER 2019-11-14 00:30 | Emergency (ER) | payer BC ==
[~2019-11-14] VITALS: Ht 182.9 cm; Wt 70.0 kg
--- NOTE | 2019-11-14 00:47 | NUR ---
BIB [facility] D/T SEVERE ABDOMEN PAIN ETOH HX OF PANCREATITIS D/T ETOH OTHERWISE VSS INTACT PT IS AAOX4 ERP AT BEDSIDE FOR ER EVAL PT EXPLAINED ABOUT PT'S SYMPTOMS HX OF CELIAC DZ
[2019-11-14] MEDS ORDERED: SODIUM CHLORIDE 0.9% 1,000ML IVBOLUS ONE (01:00)
[2019-11-14] MEDS ORDERED: PROCHLORPERAZINE 5 MG/ML, 2ML IVPush ONE (01:00)
[2019-11-14] MEDS ORDERED: SODIUM CHLORIDE FLUSH 10ML SYR IVF ONE (01:00)
[2019-11-14 01:22] LABS: ALANINE AMINOTRANSFERASE 45 U/L (12-78); ALBUMIN 3.6 g/dL (3.4-5.0); ANION GAP 12 mmol/L (5-15); CALCIUM 7.7 mg/dL (8.5-10.1); CHLORIDE 104 mmol/L (98-107)
[2019-11-14 01:25] LABS: ALKALINE PHOSPHATASE 126 U/L (45-117); BILIRUBIN,TOTAL 0.8 mg/dL (0.2-1.0); CREATININE 0.91 mg/dL (0.7-1.3); TOTAL PROTEIN 6.9 g/dL (6.4-8.2)
[2019-11-14] MEDS ORDERED: HALOPERIDOL 5 MG/ML IVPush PRN (01:30)
[2019-11-14] MEDS ORDERED: HALOPERIDOL 5 MG/ML ONE (01:31)
[2019-11-14] MEDS ORDERED: PROCHLORPERAZINE 5 MG/ML, 2ML ONE (01:37)
--- NOTE | 2019-11-14 01:44 | NUR ---
notified md martinez d/t pt's c/o pain and very restless obtained order of meds still waiting for lab result pt up ambulated to bathroom x2 already with stable gait
[2019-11-14 01:48] LABS: BASOPHILS % (AUTO) 0 % (0-1); EOSINOPHILS # (AUTO) 0.06 x10^3/uL (0-0.4); EOSINOPHILS % (AUTO) 1 % (1-7); LYMPHOCYTES # (AUTO) 1.55 x10^3/uL (1-3.4); LYMPHOCYTES % (AUTO) 28 % (22-44); MD SCAN; MEAN CORPUSCULAR HEMOGLOBIN 33.2 pg (27.5-34.5); MEAN CORPUSCULAR HGB CONC 33.7 g/dL (33.2-36.2); MEAN CORPUSCULAR VOLUME 98.7 fL (81-97); MEAN PLATELET VOLUME 9.5 fL (7.4-10.4); MONOCYTES # (AUTO) 0.28 x10^3/uL (0.2-0.8); MONOCYTES % (AUTO) 5 % (2-9); NEUTROPHILS # (AUTO) 3.58 x10^3/uL (1.8-6.8); NEUTROPHILS % (AUTO) 65 % (42-75); PLATELET COUNT 73 x10^3/uL (130-400); RED BLOOD COUNT 4.36 x10^6/uL (4.38-5.82); RED CELL DISTRIBUTION WIDTH 15.2 % (9.4-14.8)
--- NOTE | 2019-11-14 02:22 | NUR ---
given dc instruction pt understood pt up ambulated to check out given taxi anita
[2019-11-14 02:24] VITALS: BP 122/68
== END 2019-11-14 02:26 | disposition home or self-care (01) ==
LOC: ED 01:54
DX: G89.29 Other chronic pain (principal); R10.13 Epigastric pain; F10.20 Alcohol dependence, uncomplicated; K21.9 Gastro-esophageal reflux disease without esophagitis; I10 Essential (primary) hypertension; F17.200 Nicotine dependence, unspecified, uncomplicated; Z72.9 Problem related to lifestyle, unspecified; Z75.9 Unspecified problem related to medical facilities and other health care; Z91.14 Patient's other noncompliance with medication regimen; Z63.8 Other specified problems related to primary support group; Z76.5 Malingerer [conscious simulation]; Y90.8 Blood alcohol level of 240 mg/100 ml or more
CPT/HCPCS: 36415; 80053; 80307; 83690; 83735; 85025; 93005; 96361; 96374; 96375; 99284; J0780; J1630; J7030

== ENCOUNTER 2019-11-14 17:57 | Emergency (ER) | payer BC ==
[~2019-11-14] VITALS: Ht 172.7 cm; Wt 73.0 kg
[2019-11-14 18:07] VITALS: BP 102/67
--- NOTE | 2019-11-14 18:13 | NUR ---
PT HAS SLURRED SPEECH, APPEARS INEBRIATED. AWAITING MD NEVAREZ. COOPERATIVE. BREATHING EVEN AND UNLABORED
--- NOTE | 2019-11-14 18:28 | NUR ---
Pt ambulating to restroom without difficulty. Pt escorted back to room. vss.
[2019-11-14] MEDS ORDERED: ONDANSETRON 2MG/ML, 2ML IVPush ONE (18:30)
[2019-11-14 18:53] LABS: ALANINE AMINOTRANSFERASE 45 U/L (12-78); ALBUMIN 3.6 g/dL (3.4-5.0); ANION GAP 11 mmol/L (5-15); CALCIUM 7.9 mg/dL (8.5-10.1); CHLORIDE 104 mmol/L (98-107); CREATININE 0.84 mg/dL (0.7-1.3)
[2019-11-14 18:56] LABS: ALKALINE PHOSPHATASE 145 U/L (45-117); BILIRUBIN,TOTAL 1.1 mg/dL (0.2-1.0)
--- NOTE | 2019-11-14 19:05 | NUR ---
Pt eloped from emergency department. Pt unable to be found, security informed. learning and development associate infromed.
[2019-11-14 19:35] LABS: MD YES; MEAN CORPUSCULAR HEMOGLOBIN 33.6 pg (27.5-34.5); MEAN CORPUSCULAR HGB CONC 34.1 g/dL (33.2-36.2); MEAN CORPUSCULAR VOLUME 98.7 fL (81-97); MEAN PLATELET VOLUME 9.6 fL (7.4-10.4); PLATELET COUNT 57 x10^3/uL (130-400); RED BLOOD COUNT 4.27 x10^6/uL (4.38-5.82); RED CELL DISTRIBUTION WIDTH 15.3 % (9.4-14.8)
[2019-11-14 19:37] LABS: LYMPH#(MANUAL) 0.46 x10^3/uL (1-3.4); LYMPHS% (MANUAL) 10 % (22-44); MONOS#(MANUAL) 0.05 x10^3/uL (0.3-2.7); MONOS% (MANUAL) 1 % (2-9); SEG#(MANUAL) 4.09 x10^3/uL (1.8-6.8); SEGS% (MANUAL) 89 % (42-75)
[2019-11-14 19:38] LABS: <PLATELET ESTIMATE> DECREASED; <PLT MORPHOLOGY> NORMAL PLT MORPH; ANISOCYTOSIS 1+
== END 2019-11-14 19:12 | disposition left against medical advice (07) ==
LOC: ED 18:35
DX: F10.120 Alcohol abuse with intoxication, uncomplicated (principal); I10 Essential (primary) hypertension; G89.29 Other chronic pain; K21.9 Gastro-esophageal reflux disease without esophagitis; F17.200 Nicotine dependence, unspecified, uncomplicated; Y90.9 Presence of alcohol in blood, level not specified
CPT/HCPCS: 36415; 80053; 80307; 83690; 85025; 99283

== ENCOUNTER 2020-12-11 13:34 | Emergency (ER) | payer MEDICAID, OTHER ==
[~2020-12-11] VITALS: Ht 182.9 cm; Wt 85.7 kg
[~2020-12-11 13:34] MED LIST changes: -OXYC-302 PO; -OXYC-307 PO; +OXYC-380 PO; +OXYC1TAB14 PO
[2020-12-11 13:39] VITALS: BP 118/84
[2020-12-11] MEDS ORDERED: ONDANSETRON ODT 4 MG ONE (14:16)
[2020-12-11] MEDS ORDERED: KETOROLAC 30 MG/1 ML ONE (14:16)
[2020-12-11] MEDS ORDERED: HYDROcodone/APAP 5/325 TABLET ONE (14:17)
[2020-12-11] MEDS ORDERED: CYCLOBENZAPRINE 10 MG TABLET ONE (14:17)
[2020-12-11] MEDS ORDERED: TIZA-106 PO (14:28)
[2020-12-11] MEDS ORDERED: OXYC1TAB18 PO (14:28)
[2020-12-11] MEDS ORDERED: BUPR8TAB SL (14:28)
[2020-12-11] MEDS ORDERED: CYCLOBENZAPRINE 10 MG TABLET PO ONE (14:30)
[2020-12-11] MEDS ORDERED: ONDANSETRON ODT 4 MG PO ONE (14:30)
[2020-12-11] MEDS ORDERED: KETOROLAC 30 MG/1 ML IM ONE (14:30)
[2020-12-11] MEDS ORDERED: HYDROcodone/APAP 5/325 TABLET PO ONE (14:30)
--- NOTE | 2020-12-11 15:11 | NUR ---
REPORT GIVEN TO ROSALINDA COLLIER.
== END 2020-12-11 15:18 | disposition home or self-care (01) ==
LOC: ED 15:05
DX: S39.012A Strain of muscle, fascia and tendon of lower back, initial encounter (principal); S29.012A Strain of muscle and tendon of back wall of thorax, initial encounter; G89.29 Other chronic pain; K21.9 Gastro-esophageal reflux disease without esophagitis; X58.XXXA Exposure to other specified factors, initial encounter; Y93.89 Activity, other specified; Y92.89 Other specified places as the place of occurrence of the external cause; Y99.8 Other external cause status
CPT/HCPCS: 72072; 72110; 96372; 99284; J1885; Q0162

== ENCOUNTER 2021-06-16 13:06 | Emergency (ER) | payer MEDICAID, OTHER ==
[~2021-06-16] VITALS: Ht 182.9 cm; Wt 79.7 kg
[~2021-06-16 13:06] MED LIST changes: +BUPR8TAB SL; +OXYC1TAB18 PO; +TIZA-106 PO
--- NOTE | 2021-06-16 13:19 | NUR ---
pot puller: EKG done in triage
--- NOTE | 2021-06-16 13:33 | NUR ---
FIRST CONTACT:pt states "I fell off the wagon" +ETOH for about 1 week, last drink this AM,+vomiting wants detox. PT TO BED WITH STEADY GAIT. ATTACHED TO MONITORS. FRANCIA MENDEZ TO BEDSIDE FOR EVALUATION.
[2021-06-16] MEDS ORDERED: MORPHINE SULFATE 4 MG/ML, 1ML ONE (13:45)
[2021-06-16] MEDS ORDERED: ONDANSETRON 2MG/ML, 2ML ONE (13:45)
[2021-06-16] MEDS ORDERED: ONDANSETRON 2MG/ML, 2ML IVPush ONE (14:00)
[2021-06-16] MEDS ORDERED: SODIUM CHLORIDE 0.9% 1,000ML IVBOLUS ONE (14:00)
[2021-06-16] MEDS ORDERED: MORPHINE SULFATE 4 MG/ML, 1ML IVPush PRN (14:00)
[2021-06-16 14:03] LABS: BASOPHILS % (AUTO) 1 % (0-1); EOSINOPHILS % (AUTO) 2 % (1-7); LYMPHOCYTES % (AUTO) 40 % (22-44); MEAN CORPUSCULAR HEMOGLOBIN 33.1 pg (27.5-34.5); MEAN CORPUSCULAR HGB CONC 34.4 g/dL (33.2-36.2); MEAN PLATELET VOLUME 8.8 fL (7.4-10.4); MONOCYTES % (AUTO) 6 % (2-9); NEUTROPHILS % (AUTO) 52 % (42-75); PLATELET COUNT 220 x10^3/uL (130-400); RED BLOOD COUNT 4.83 x10^6/uL (4.38-5.82); RED CELL DISTRIBUTION WIDTH 15.4 % (9.4-14.8)
--- NOTE | 2021-06-16 14:03 | NUR ---
US AT BEDSIDE
--- NOTE | 2021-06-16 14:13 | NUR ---
PT ASLEEP WITH EVEN AND UNLABORED RESPIRATIONS.
[2021-06-16 14:21] LABS: ANION GAP 7 mmol/L (5-15); CALCIUM 8.1 mg/dL (8.5-10.1); CHLORIDE 108 mmol/L (98-107); CREATININE 0.79 mg/dL (0.7-1.3)
[2021-06-16 14:22] LABS: ALANINE AMINOTRANSFERASE 52 U/L (12-78); ALKALINE PHOSPHATASE 150 U/L (45-117); BILIRUBIN,TOTAL 0.6 mg/dL (0.2-1.0)
[2021-06-16 14:23] LABS: ALBUMIN 3.5 g/dL (3.4-5.0); TOTAL PROTEIN 7.3 g/dL (6.4-8.2)
[2021-06-16 15:32] VITALS: BP 108/66
--- NOTE | 2021-06-16 15:33 | NUR ---
pt asleep with even and unlabored respirations.
== END 2021-06-16 16:45 | disposition home or self-care (01) ==
LOC: ED 13:36
DX: K29.20 Alcoholic gastritis without bleeding (principal); F10.229 Alcohol dependence with intoxication, unspecified; R00.0 Tachycardia, unspecified; I10 Essential (primary) hypertension; Y90.0 Blood alcohol level of less than 20 mg/100 ml
CPT/HCPCS: 36415; 76700; 80053; 80320; 83690; 85025; 93005; 96374; 96375; 99285; J2270; J2405; J7030; G0480